=== PATIENT | male | born 1940 | race Caucasian/White ===

== ENCOUNTER 2016-11-07 04:30 | Inpatient (IN) | payer OTHER ==
--- NOTE | ~2016-11-07 | CO ---
Unit #: [id number] #: [id number] Patient: GAIL PAUL [id number] [address] [place], [place] [address] [id number] I MR#: [id number] NAME: GAIL PAUL ROOM: 68902 Age: 76 Sex: M Admission Date: 11/07/2016 : 1940 Attending Physician: Ronel Mcmullen M.D. Primary Care Physician: Renetta Jones A.P.R.N. CONSULTATION REPORT HISTORY Mr. Paul is a 76-year-old white male, known to me from the past, who presents with a several-day history of increased shortness of breath. He said it felt as if there is something in his bronchial tube that he has not been able to cough up. His chest x-ray showed increased interstitial markings bilaterally. He was noted to be in A fib with rapid ventricular response. He denied any chest pain. He has had no fever or chills. He has had no hemoptysis. He is not aware of any increased edema. PAST MEDICAL HISTORY 1. Bladder cancer status post cystectomy with ileal conduit. 2. History of laryngeal cancer with permanent trach stoma. 3. History of rectal cancer. 4. History of lung cancer status post chemoradiation. 5. History of COPD. 6. Gastroesophageal reflux. 7. Hypothyroidism. ALLERGIES No known allergies. SOCIAL HISTORY No alcohol. No tobacco. HOME MEDICATIONS Hydrocodone, APAP, levothyroxine, Prilosec, iron, vitamin C, Lopressor. REVIEW OF SYSTEMS A 10-point system is otherwise negative. PHYSICAL EXAMINATION GENERAL: White male in no distress. VITAL SIGNS: Blood pressure 110/98, pulse 127, respiratory rate 27, temperature 98.1, room air sat 98%. HEENT: Normocephalic, atraumatic. Pupils equal, round and reactive. NECK: Supple. Trach stoma. Dry. LUNGS: Fairly clear. CARDIAC: Irregular rate and rhythm. ABDOMEN: Nontender. Bowel sounds are present. No hepatosplenomegaly. EXTREMITIES: Without clubbing, cyanosis. There is 2+ pedal edema. SKIN: Warm and dry. PSYCHIATRIC: Affect calm. DIAGNOSTIC STUDIES Unit #: [id number] #: [id number] Patient: GAGLE,GAIL LABORATORY STUDIES: Arterial blood gases show pH of 7.52, pCO2 28, pO2 72 on room air. Creatinine is 1.1, potassium 2.9, alkaline phosphatase 187. Lactic acid 1.5. Coags normal. White blood cell count 22, hematocrit 29.1, platelet count normal. Cardiac enzymes initially negative. No BNP has been done. IMPRESSION Increased bilateral infiltrates. May be related to CHF with lower extremity edema; less likely pneumonia but does have elevated white blood cell count. Elevated white count could be secondary to myocardial damage. Doubt venous thromboembolism but certainly is possible given recent extensive surgery. PLAN 1. Will check BNP and procalcitonin level. 2. Empiric antibiotics for possible healthcare-acquired pneumonia. 3. Consider chest CT scan. 4. Cardiology is following. An echo has been ordered. Serial enzymes will be done. 5. Will make recommendations based on results of BNP. Will follow with you. Dictated by... Michael Doherty M.D. BLOSSOM/altaf TD: 11/07/2016 13:18 JOB #: [id number] CONSULTATION REPORT Page 1 of 1 X Michael Doherty MD X CONSULTATION REPORT
--- NOTE | ~2016-11-07 | CR72 ---
[facility] A Service of [facility] RADIOLOGY TEXT RESULTS PATIENT: GAIL PAUL LOCATION: A 307-01 : 40 UNIT #: [id number] AGE: [address]: Ronel Mcmullen MD SEX: M ORDER DR: [id number] [facility] [address] [place], [place] [address] [id number] I MR#: [id number] Acc #: [id number] NAME: GAIL PAUL : 1940 SEX: M STUDY DATE/TIME: 11/07/2016 4:13 UNIT: CEDOF ROOM: 11754 STUDY DESCRIPTION: CR Chest Single View Portable Attending Physician: Ronel Mcmullen M.D. Ordering Physician: Jesus Ro M.D. Primary Care Physician: Renetta Jones A.P.R.N. MEDICAL IMAGING REPORT This report is preliminary unless electronic signature is present EXAM AP portable chest, 11/07/2016 HISTORY 76-year-old male in the ED complaining of 1-day history of shortness of air, weakness. Atrial fibrillation. Prior history of lung cancer. TECHNIQUE AP portable chest x-ray. FINDINGS The exam shows postoperative changes previous partial left pneumonectomy surgery with volume loss and pleural thickening at the left lung apex and pleural thickening surrounding the left mid and lower lung, best demonstrated on prior chest CT 08/25/2012. Background pulmonary emphysema. Mildly increased and indistinct interstitial markings throughout both lungs, greatest at the lung bases. This may represent superimposed mild diffuse interstitial pulmonary edema or pneumonitis, correlate clinically. Heart size is normal. Low lung volumes. IMPRESSION 1. Pulmonary emphysema with postop changes partial left pneumonectomy as noted. 2. Possible mild superimposed diffuse interstitial edema or infiltrate. Dictated by... Lee Padilla M.D. THIS IS AN ELECTRONICALLY VERIFIED REPORT Lee Padilla M.D. at 11/07/2016 10:06 PM ORESTES/jaquelin [facility] A Service of [facility] RADIOLOGY TEXT RESULTS PATIENT: GAIL PAUL LOCATION: C3A 307-01 : 40 UNIT #: [id number] AGE: [address]: Ronel Mcmullen MD SEX: M ORDER DR: TD: 11/07/2016 13:30 JOB #: [id number] MEDICAL IMAGING REPORT Page 1 of 1 COPY
--- NOTE | ~2016-11-07 | US84 ---
[id number] [facility]. [facility] [address] [place] [address] [place], [place] [address] [id number] I MR#: [id number] Acc #: [id number] NAME: GAIL PAUL : 1940 SEX: M STUDY DATE/TIME: 11/07/2016 16:17 UNIT: C3A PCU ROOM: 307 STUDY DESCRIPTION: US LE Veins Complete Gurjit Stdy Attending Physician: Ronel Mcmullen M.D. Ordering Physician: Ed Tien Hammer M.D. Primary Care Physician: Renetta Jones A.P.R.N. MEDICAL IMAGING REPORT This report is preliminary unless electronic signature is present EXAM Lower extremity venous ultrasound, bilateral study, 11/07/2016 HISTORY Question PE. Short of air since yesterday. Atrial fibrillation. Color surgery 2 or 3 weeks ago. TECHNIQUE Venous ultrasound examination of both lower extremities was performed using grayscale, spectral Doppler and color flow Doppler imaging. FINDINGS The examination is negative. There is no evidence of deep venous thrombus from the groin to the lower calf bilaterally. Visualized greater saphenous veins are also patent. IMPRESSION Negative examination. No evidence of lower extremity deep venous thrombosis. Dictated by... Dominick Ann M.D. THIS IS AN ELECTRONICALLY VERIFIED REPORT Dominick Ann M.D. at 11/09/2016 8:06 PM Sharona TD: 11/08/2016 02:16 JOB #: [id number] MEDICAL IMAGING REPORT Page 1 of 1 COPY
--- NOTE | ~2016-11-07 | CR63 ---
[facility] A Service of [facility] RADIOLOGY TEXT RESULTS PATIENT: GAIL PAUL LOCATION: C3A 307- : 40 UNIT #: [id number] AGE: [address]: Ronel Mcmullen MD SEX: M ORDER DR: [id number] [facility] [address] [place], [place] [address] [id number] I MR#: [id number] Acc #: [id number] NAME: GAIL PAUL : 1940 SEX: M STUDY DATE/TIME: 11/09/2016 09:07 UNIT: C3A PCU ROOM: [facility] STUDY DESCRIPTION: CR Chest 2 View Attending Physician: Ronel Mcmullen M.D. Ordering Physician: Ronel Mcmullen M.D. Primary Care Physician: Renetta Jones A.P.R.N. MEDICAL IMAGING REPORT This report is preliminary unless electronic signature is present EXAM Chest 2 views 11/09/2016 0907 hours HISTORY 76-year-old with 3-day history of shortness of air, atrial fibrillation. History of lung, bladder and throat cancer. COMPARISON Chest film 11/07/2016. FINDINGS Upright AP and lateral views of the chest demonstrate normal heart size with tortuous aorta. There is stable left apical pleural and parenchymal scar. Interstitial changes in both lungs are improved. Lateral view demonstrates bilateral effusions likely stable. IMPRESSION Stable left apical pleural and parenchymal scar. Bilateral parenchymal changes have improved since 11/07/2016 without complete resolution. Better seen on the lateral view are bilateral pleural effusions felt unchanged. Dictated by... Belen Weber M.D. THIS IS AN ELECTRONICALLY VERIFIED REPORT Belen Weber M.D. at 11/09/2016 1:55 PM ASHKAN/jaswant TD: 11/09/2016 10:19 JOB #: [id number] [facility] A Service of [facility] RADIOLOGY TEXT RESULTS PATIENT: GAIL PAUL LOCATION: C3A 307-01 : 40 UNIT #: [id number] AGE: [address]: Ronel Mcmullen MD SEX: M ORDER DR: MEDICAL IMAGING REPORT Page 1 of 1 COPY
--- NOTE | ~2016-11-07 | EKG ---
PATIENT: NAVI PAULER UNIT #: [id number] Ventricular Rate: 84 BPM Atrial Rate: 84 BPM P-R Interval: 150 ms QRS Duration: 84 ms Q-T Interval: 382 ms QTC Calculation(Bezet): 451 ms P [place]: -6 degrees Calculated R [place]: 7 degrees Calculated T [place]: 86 degrees Diagnosis Line: Normal sinus rhythm Diagnosis Line: Normal ECG Diagnosis Line: When compared with ECG of 07-NOV-2016 03:36, Diagnosis Line: (unconfirmed) Diagnosis Line: Sinus rhythm has replaced Atrial fibrillation Diagnosis Line: Vent. rate has decreased BY 48 BPM Diagnosis Line: ST no longer depressed in Anterior leads Diagnosis Line: Confirmed by MARCO ANTONIO LIZAMA, KARLOS ([id number]) on 11/09/2016 Diagnosis Line: 7:42:57 AM INTERPRETING MD: MARCO ANTONIO LIZAMA
--- NOTE | ~2016-11-07 | CR7 ---
[facility] A Service of [facility] RADIOLOGY TEXT RESULTS PATIENT: GAIL PAUL LOCATION: C3A 307- : 40 UNIT #: [id number] AGE: [address]: Ronel Mcmullen MD SEX: M ORDER DR: [id number] [facility] [address] [place], [place] [address] [id number] I MR#: [id number] Acc #: [id number] NAME: GAIL PAUL : 1940 SEX: M STUDY DATE/TIME: 11/13/2016 9:01 UNIT: C3A PCU ROOM: [facility] STUDY DESCRIPTION: CR Abdomen Single AP View Attending Physician: Ronel Mcmullen M.D. Ordering Physician: Ivan Silva M.D. Primary Care Physician: Renetta Jones A.P.R.N. MEDICAL IMAGING REPORT This report is preliminary unless electronic signature is present EXAM AP of the abdomen INDICATIONS 76-year-old male with abdominal pain and shortness of breath since November 07. No comparisons. FINDINGS Bowel gas pattern is nonobstructed. No radiopaque stones. The visualized osseous structures are unremarkable. IMPRESSION Nonobstructed bowel gas pattern. Dictated by... Abimael Chavarria M.D. THIS IS AN ELECTRONICALLY VERIFIED REPORT Abimael Chavarria M.D. at 11/14/2016 9:07 AM Derek TD: 11/13/2016 12:26 JOB #: [id number] MEDICAL IMAGING REPORT Page 1 of 1 COPY
--- NOTE | ~2016-11-07 | HP ---
Unit #: [id number] #: [id number] Patient: GAIL PAUL [id number] [facility] [address]. [place], [place] [address] [id number] I MR#: [id number] NAME: GAIL PAUL ROOM: 307 Age: 76 Sex: M Admission Date: 11/07/2016 : 1940 Attending Physician: Ronel Mcmullen M.D. Primary Care Physician: Renetta Jones A.P.R.N. HISTORY AND PHYSICAL REASON FOR ADMISSION Acute respiratory failure, atrial fibrillation with rapid ventricular response. HISTORY OF PRESENT ILLNESS The patient is a 76-year-old male with a prior history of laryngeal cancer, status post laryngectomy, chemotherapy radiation; prior history of rectal cancer, status post laparoscopic resection with primary anastomosis with resultant ileostomy as well as recent diagnosis of bladder cancer. I believe with resection in recent hospital admission in [facility] earlier in 09/2016. He states that over the past 3 to 4 days had increased difficulty with breathing, marked fatigue, shortness of breath, and stated that he had difficulty with routine activities. His who is present at bedside, states that he is otherwise quite active despite having a tracheostomy present. He is active both indoors and outdoors with his routine ADLs, but recently has had increased fatigue and difficulties with breathing. The patient also states that he is followed by one of the cancer physicians at [facility]; however, we do not have any previous records here at [facility] for review. The patient himself is perhaps not the best historian and some of this H and P is elicited from previous records performed at [facility]. While he was evaluated in the emergency room, he was noted to be in atrial fibrillation with rapid ventricle response. It is noted that he did have postoperative atrial fibrillation from his recent [facility] surgery secondary to radical cystectomy and ileal conduit placement. PAST MEDICAL HISTORY 1. Prior history of bladder cancer with recent surgery; rectal cancer; colon cancer; metastatic lung disease, I believe per records, emphysema of lung, lifelong smoker; GERD; laryngeal cancer, status post laryngectomy with resultant tracheostomy placement. 2. Hypothyroidism. 3. Atrial fibrillation postoperatively in recent hospital stay. PAST SURGICAL HISTORY 1. Cystoscopy. 2. Colon resection. 3. Left inguinal hernia surgery. Unit #: [id number] #: [id number] Patient: GAGSEVERO,GAIL ALLERGIES No known medication allergies. SOCIAL HISTORY No alcohol use. No substance use. No tobacco use. CURRENT HOME MEDICATIONS [place], Synthroid, omeprazole, iron, vitamin C, Lopressor. REVIEW OF SYSTEMS Please see HPI. Twelve point otherwise negative except for those positive noted in the HPI. PHYSICAL EXAMINATION VITAL SIGNS: Temperature 98.1, respiratory rate 27, blood pressure 110/98, heart rate 127, atrial fibrillation with RVR noted. Cardizem drip initiated in the ER. GENERAL APPEARANCE: The patient is a 76-year-old male, who appears well. He is alert and responds appropriately. HEAD/NECK: Atraumatic and normocephalic. Neck exam appears supple. On stoma exam, it appears to be clean and dry. I do not see any drainage or any erythema around tracheostomy site. RESPIRATORY: Diminished bilaterally. CVS: S1, S2 are audible with irregularly irregular rhythm changes, tachycardic. GI/ABDOMEN: Nontender and nondistended. Ileostomy present. EXTREMITIES: Lower extremities exam, no evidence of lower extremities edema noted. NEUROLOGIC: The patient is A and O x3. Assisted in speaking by use of amplified vocal device. DIAGNOSTIC STUDIES IMAGING STUDIES: Chest x-ray shows interstitial lung markings, pulmonary edema versus pneumonia. LABORATORY RESULTS: Show white count 22,000, hemoglobin 9.4. Potassium 2.9, creatinine 1.1. ABG show pH of 7.52, pO2 of 72, pCO2 of 28. Lactic acid level 1.9. INITIAL ADMISSION DIAGNOSES 1. Dyspnea likely multifactorial secondary to acute respiratory failure as well as atrial fibrillation with rapid ventricular response. 2. Atrial fibrillation with rapid ventricular response change. 3. Bilateral edema versus pneumonia, possible healthcare acquired pneumonia given recent hospital admission. 4. Urinary tract infection. 5. Hypokalemia on admission. 6. Leukocytosis. 7. Anemia. 8. Recent hospital admission secondary to bladder carcinoma, status post resection. 9. Prior history of rectal cancer. 10. Prior history of laryngeal cancer, status post tracheostomy. 11. Questionable metastatic disease to the lungs. I do not have any previous records to verify. PLAN Unit #: [id number] #: [id number] Patient: GAIL PAUL Admission to ICU. Cardiac consult. Pulmonary consult. Oncology consult. Routine labs, electrolytes, anticoagulation, echo. HCAP protocol. CT chest if able. Further hospital course to follow. Dictated by Jenn Cross/daniel TD: 11/08/2016 03:11 JOB #: [id number] HISTORY AND PHYSICAL Page 1 of 1 X Ronel Mcmullen MD X HISTORY AND PHYSICAL
--- NOTE | ~2016-11-07 | CO ---
Unit #: [id number] #: [id number] Patient: GAIL PAUL [id number] [address] [place], [place] [address] [id number] I MR#: [id number] NAME: GAIL PAUL ROOM: 307 Age: 76 Sex: M Admission Date: 11/07/2016 : 1940 Attending Physician: Ronel Mcmullen M.D. Primary Care Physician: Renetta Jones A.P.R.N. Consultation Date: 11/13/2016 CONSULTATION REPORT CHIEF COMPLAINT Gross hematuria. HISTORY OF PRESENT ILLNESS Mr. Paul is a 76-year-old gentleman who underwent cystectomy, laparoscopic technique maybe 3 weeks ago at [facility] with Dr. Isaacs. The patient was initially diagnosed with bladder cancer muscle invasive in 07/2016 by my partner, Dr. Ibanez. The patient is here with respiratory failure, pneumonia, COPD. We were consulted for his hematuria. PAST MEDICAL HISTORY TURBT, bladder cancer radical cystectomy, laparoscopic technique, colon resection, colon surgery, laryngectomy for throat cancer, COPD. SOCIAL HISTORY Positive smoking. FAMILY HISTORY Noncontributory. HOME MEDICATIONS He was on Prilosec, Lortab, Lopressor, Synthroid. He did receive some Eliquis here in the hospital, later it was stopped. PHYSICAL EXAMINATION VITAL SIGNS: Stable. He is afebrile. ABDOMEN: Soft. No rebound. No guarding. Stoma is pink. Urine in the bag also was pink tinged, but no clots. There are no stents present in the conduit. DIAGNOSTIC STUDIES LABORATORY RESULTS: Creatinine 1.2. White count 12.1. Urine culture obtained on the shows greater than 100,000 mixed, probably colonization. ASSESSMENT Hematuria unexpected with recent cystectomy and with likely some anticoagulation received recently, however, we will check a renal ultrasound and KUB. We will follow along with you. Thank you for the referral. Unit #: [id number] #: [id number] Patient: GAIL PAUL Dictated by... Jenn Stahl/daniel TD: 11/14/2016 01:22 JOB #: [id number] CONSULTATION REPORT Page 1 of 1 X Ivan Silva MD CONSULTATION REPORT
--- NOTE | ~2016-11-07 | EKG ---
PATIENT: GAIL PAUL UNIT #: [id number] Ventricular Rate: 132 BPM Atrial Rate: 138 BPM QRS Duration: 84 ms Q-T Interval: 294 ms QTC Calculation(Bezet): 435 ms Calculated R [place]: -4 degrees Calculated T [place]: 133 degrees Diagnosis Line: Atrial fibrillation with rapid ventricular Diagnosis Line: response with premature ventricular or aberrantly Diagnosis Line: conducted complexes Diagnosis Line: Nonspecific ST and T wave abnormality Diagnosis Line: Abnormal ECG Diagnosis Line: No previous ECGs available Diagnosis Line: Confirmed by LEEANNE MONTANA MD ([id number]) on 11/08/2016 Diagnosis Line: 9:17:57 AM INTERPRETING MD: RUBÉN LIZAMA
--- NOTE | ~2016-11-07 | CO ---
Unit #: [id number] #: [id number] Patient: GAIL PAUL [id number] [facility]. [address] [place], [place] [address] [id number] I MR#: [id number] NAME: GAIL PAUL ROOM: [facility] Age: Sex: M Admission Date: 11/07/2016 : 1940 Attending Physician: Ronel Mcmullen M.D. Primary Care Physician: Renetta Jones A.P.R.N. Consultation Date: 11/07/2016 CONSULTATION REPORT REASON FOR CONSULT Atrial fibrillation with RVR. HISTORY OF PRESENT ILLNESS This is a pleasant 76-year-old male with a past medical history of colon cancer, status post anterior wall resection many years ago, laryngeal carcinoma, status post laryngectomy in the past most recently; however, the patient underwent bladder removal secondary to muscle invasive bladder cancer. This was performed approximately three weeks or so ago at [facility] per Dr. Isaacs. According to the records from [facility], on October 17 he underwent robotic radical cystectomy and ileal conduit. The procedure went well. However, postoperatively he had some complications with developing of new-onset atrial fibrillation. Cardiology evaluated him there and started him on rate control with metoprolol, and he was also sent home on Lovenox subcutaneous daily. We were asked to see secondary to atrial fibrillation with RVR. According to the patient and his , he had been having some issues with shortness of breath over the last two days. He states that last evening he had gone to sleep when he awoke around 11:30 or 12 p.m. secondary to acute onset respiratory distress. He denied any complaints of chest pain, palpitations, or syncope at that time. He states to me he felt like something was stuck in his throat. He reported the breathing really scared him; therefore, he presented to the emergency room for further workup. On arrival to the ER, the patient was noted to be in atrial fibrillation with RVR, rates in the 130s. Initial chest x-ray showed increased interstitial markings bilaterally. He denied any complaints of fever or chills and denied association with any sick contacts recently. In the ER, he was also noted to have initially a low blood pressure and was given a small amount of fluid bolus. He was also bolused with Cardizem and started on a Cardizem drip. Initial potassium was also noted to be low at 2.9 and has since been replaced. Initial cardiac enzymes have been negative x2. EKG shows atrial fibrillation with RVR, rate of 132 beats per minute, nonspecific ST and T wave abnormalities noted, and QTc interval of 435 msec. At present, he is resting in bed. He still states his breathing is labored but denies any complaints of chest pain. Initial lactic acid was 1.9. It does appear that patient has a UTI. Culture is currently pending. He has 3+ leukocyte esterase and 4+ blood, and also noted to have a white count of 22,000 with left shift. He is currently on 60% Unit #: [id number] #: [id number] Patient: GAGLE,GAIL oxygen via trach mask, and Pulmonary has also been consulted to see. PAST MEDICAL HISTORY 1. History of colon cancer, status post low anterior resection in the past over 10 years ago per the patient's . 2. History of laryngeal cancer with permanent trach stoma. 3. Recent bladder removal secondary to bladder cancer, post cystectomy with ileal conduit in October [address] Isaacs at [facility]. 4. History of lung cancer, status post chemoradiation. 5. Chronic obstructive pulmonary disease. 6. Gastroesophageal reflux disease. 7. Hypothyroidism. 8. New-onset atrial fibrillation post surgical intervention at [facility] approximately three weeks ago. ALLERGIES No known drug allergies. SOCIAL HISTORY Denies alcohol, illicit drugs, or tobacco. HOME MEDICATIONS 1. Hydrocodone 5/325 at 1 p.o. q.6 hours p.r.n. 2. Levothyroxine 150 mcg p.o. daily. 3. Omeprazole 20 mg p.o. daily. 4. Iron 65 mg p.o. b.i.d. 5. Vitamin C 500 mg p.o. daily. 6. Lopressor 12.5 mg p.o. t.i.d. 7. Lovenox 30 mg subcutaneous daily. REVIEW OF SYSTEMS Positive for shortness of breath, fatigue, hypothyroidism, and irregular heartbeat, otherwise negative except for what was stated in the History of Present Illness. PHYSICAL EXAMINATION VITAL SIGNS: Temperature 97.7, respiratory rate 18-22, pulse currently 87, on initial presentation 130s-150, irregular, blood pressure 87/61 to 106/68, and currently on 60% trach mask oxygen saturation is 96%. BMI 24. GENERAL: This is a pleasant 76-year-old elderly male who appears to be mildly labored in his breathing currently on 60% trach mask. No acute cardiac distress. HEENT: Pupils are equal and round. Mucous membranes are dry. Trachea is midline. NECK: No JVD, no carotid bruits. CARDIOVASCULAR: S1 and S2. No murmur, gallop, or rub. LUNGS: Clear to auscultation anterior. Diminished breath sounds in the bases. No rales, rhonchi, or wheezes. ABDOMEN: Soft, nontender, and nondistended. EXTREMITIES: Pulses are palpable. No clubbing, cyanosis, or edema. NEUROLOGIC: Awake, alert, and oriented. He follows commands and moves all extremities. DIAGNOSTIC STUDIES Dictated by... Kelby OsbornPFelixRFelixN. for Unit #: [id number] #: [id number] Patient: GAIL PAUL M.D. LMW/am TD: 11/07/2016 18:27 JOB #: [id number] CONSULTATION REPORT Page 1 of 1 X Tonie Mccoy APRN X CONSULTATION REPORT
--- NOTE | ~2016-11-07 | CO ---
Unit #: [id number] #: [id number] Patient: GAIL PAUL [id number] [facility]. [address] [place], [place] [address] [id number] I MR#: [id number] NAME: GAIL PAUL ROOM: 307 Age: 76 Sex: M Admission Date: 11/07/2016 : 1940 Attending Physician: Ronel Mcmullen M.D. Primary Care Physician: Renetta Jones A.P.R.N. Consultation Date: 11/07/2016 CONSULTATION REPORT REASON FOR CONSULT Atrial fibrillation with RVR. HISTORY OF PRESENT ILLNESS This is a pleasant 76-year-old male with a past medical history of colon cancer, status post anterior wall resection many years ago, laryngeal carcinoma, status post laryngectomy in the past most recently; however, the patient underwent bladder removal secondary to muscle invasive bladder cancer. This was performed approximately three weeks or so ago at [facility] per Dr. Isaacs. According to the records from [facility], on October 17 he underwent robotic radical cystectomy and ileal conduit. The procedure went well. However, postoperatively he had some complications with developing of new-onset atrial fibrillation. Cardiology evaluated him there and started him on rate control with metoprolol, and he was also sent home on Lovenox subcutaneous daily. We were asked to see secondary to atrial fibrillation with RVR. According to the patient and his , he had been having some issues with shortness of breath over the last two days. He states that last evening he had gone to sleep when he awoke around 11:30 or 12 p.m. secondary to acute onset respiratory distress. He denied any complaints of chest pain, palpitations, or syncope at that time. He states to me he felt like something was stuck in his throat. He reported the breathing really scared him; therefore, he presented to the emergency room for further workup. On arrival to the ER, the patient was noted to be in atrial fibrillation with RVR, rates in the 130s. Initial chest x-ray showed increased interstitial markings bilaterally. He denied any complaints of fever or chills and denied association with any sick contacts recently. In the ER, he was also noted to have initially a low blood pressure and was given a small amount of fluid bolus. He was also bolused with Cardizem and started on a Cardizem drip. Initial potassium was also noted to be low at 2.9 and has since been replaced. Initial cardiac enzymes have been negative x2. EKG shows atrial fibrillation with RVR, rate of 132 beats per minute, nonspecific ST and T wave abnormalities noted, and QTc interval of 435 msec. At present, he is resting in bed. He still states his breathing is labored but denies any complaints of chest pain. Initial lactic acid was 1.9. It does appear that patient has a UTI. Culture is currently pending. He has 3+ leukocyte esterase and 4+ blood, and also noted to have a white count of 22,000 with left shift. He is currently on 60% Unit #: [id number] #: [id number] Patient: GAGLE,GAIL oxygen via trach mask, and Pulmonary has also been consulted to see. PAST MEDICAL HISTORY 1. History of colon cancer, status post low anterior resection in the past over 10 years ago per the patient's . 2. History of laryngeal cancer with permanent trach stoma. 3. Recent bladder removal secondary to bladder cancer, post cystectomy with ileal conduit in [place] [address] Isaacs at [facility]. 4. History of lung cancer, status post chemoradiation. 5. Chronic obstructive pulmonary disease. 6. Gastroesophageal reflux disease. 7. Hypothyroidism. 8. New-onset atrial fibrillation post surgical intervention at [facility] approximately three weeks ago. ALLERGIES No known drug allergies. SOCIAL HISTORY Denies alcohol, illicit drugs, or tobacco. HOME MEDICATIONS 1. Hydrocodone 5/325 at 1 p.o. q.6 hours p.r.n. 2. Levothyroxine 150 mcg p.o. daily. 3. Omeprazole 20 mg p.o. daily. 4. Iron 65 mg p.o. b.i.d. 5. Vitamin C 500 mg p.o. daily. 6. Lopressor 12.5 mg p.o. t.i.d. 7. Lovenox 30 mg subcutaneous daily. REVIEW OF SYSTEMS Positive for shortness of breath, fatigue, hypothyroidism, and irregular heartbeat, otherwise negative except for what was stated in the History of Present Illness. PHYSICAL EXAMINATION VITAL SIGNS: Temperature 97.7, respiratory rate 18-22, pulse currently 87, on initial presentation 130s-150, irregular, blood pressure 87/61 to 106/68, and currently on 60% trach mask oxygen saturation is 96%. BMI 24. GENERAL: This is a pleasant 76-year-old elderly male who appears to be mildly labored in his breathing currently on 60% trach mask. No acute cardiac distress. HEENT: Pupils are equal and round. Mucous membranes are dry. Trachea is midline. NECK: No JVD, no carotid bruits. CARDIOVASCULAR: S1 and S2. No murmur, gallop, or rub. LUNGS: Clear to auscultation anterior. Diminished breath sounds in the bases. No rales, rhonchi, or wheezes. ABDOMEN: Soft, nontender, and nondistended. EXTREMITIES: Pulses are palpable. No clubbing, cyanosis, or edema. NEUROLOGIC: Awake, alert, and oriented. He moves all extremities equally. He follows commands with ease. DIAGNOSTIC STUDIES LABORATORY: Hemoglobin 9.4, hematocrit 29.1, WBC 22, and platelet count 180,000. ABG with pH of 7.525, PCO2 of 28.4, and PAO2 of 72.7. Sodium 135, potassium 2.9, chloride 102, CO2 of 24, BUN 29, creatinine 1.1, Unit #: [id number] #: [id number] Patient: GAGLE,GAIL glucose 124, magnesium 1.7, and alkaline phosphatase 187. Troponins initially have been negative x2. Urinalysis shows 3+ leukocyte esterase, 4+ blood, 5-10 RBCs, numerous WBCs, and 2+ bacteria. He currently has a urine culture that is pending. Also, blood cultures are pending. IMAGING: Chest x-ray shows pulmonary emphysema with postop changes, partial left pneumonectomy, and possible mild superimposed diffuse interstitial edema or infiltrate. CARDIOLOGY: EKG shows atrial fibrillation with RVR at 132 beats per minute, nonspecific ST and T wave abnormality, QTc interval of 435 msec, and no acute ischemic change. IMPRESSION 1. Admitted for acute shortness of breath. 2. Urinary tract infection, culture is currently pending. 3. Atrial fibrillation with rapid ventricular response. 4. Hypokalemia. 5. Acute heart failure. 6. History of colon cancer. 7. Laryngeal carcinoma, status post laryngectomy in the past. 8. Recent cystectomy and ileal conduit at [facility] on October 17, 2016. PLAN The patient has been admitted for acute onset shortness of breath. He is currently receiving IV fluids. These will be discontinued, and the patient will be given Lasix 20 IV b.i.d. At present, he is on a Cardizem drip, and his rates are more controlled. Will give orders to titrate Cardizem drip to keep systolic blood pressure above 90. The patient will have a 2D echocardiogram to assess LV systolic function, as well as for any structural abnormalities of his valve. His potassium has already been supplemented. However, he will be started on potassium chloride 20 mEq p.o. b.i.d. The patient will also be continued on his Lopressor as long as his blood pressure can tolerate it for continued rate control with parameters to hold for systolic less than 90 and a heart rate below 55. He currently was receiving Lovenox at home just subcutaneous daily. Lovenox will be increased to 1 mg/kg subcutaneous b.i.d., first dose to start now. Will monitor him for any bleeding. Will repeat CBC and BMP at 2 p.m. today with instructions to call if these values are abnormal. We will continue to follow his electrolytes and check a TSH and a lipid profile, as well as a troponin and EKG in the a.m. If the patient can tolerate the Lovenox without any significant bleeding, he will need consideration of oral anticoagulation prior to discharge. Code status has been reviewed with the patient and the family, and it has been determined the patient is agreeable to Do Not Resuscitate status, and this will continue throughout his hospitalization. Dictated by... Tonie Mccoy A.P.R.N. for Mame Lopez M.D. LMW/am TD: 11/07/2016 18:27 Unit #: [id number] #: [id number] Patient: GAIL PAUL Dictated by... Tonie Mccoy A.P.R.N. for Mame Lopez M.D. LMW/am TD: 11/07/2016 19:29 JOB #: [id number] CONSULTATION REPORT Page 1 of 1 X Tonie Mccoy APRN CONSULTATION REPORT
--- NOTE | ~2016-11-07 | CR72 ---
[facility] A Service of [facility] & [facility] RADIOLOGY TEXT RESULTS PATIENT: GAIL PAUL LOCATION: C3A 307- : 40 UNIT #: [id number] AGE: [address]: Ronel Mcmullen MD SEX: M ORDER DR: [id number] [facility] [address]. [place], [place] [address] [id number] I MR#: [id number] Acc #: [id number] NAME: GAIL PAUL : 1940 SEX: M STUDY DATE/TIME: 11/12/2016 14:03 UNIT: A PCU ROOM: [facility] STUDY DESCRIPTION: CR Chest Single View Portable Attending Physician: Ronel Mcmullen M.D. Ordering Physician: Ronel Mcmullen M.D. Primary Care Physician: Renetta Jones A.P.R.N. MEDICAL IMAGING REPORT This report is preliminary unless electronic signature is present EXAM Portable chest, 11/12/16 HISTORY A 76-year-old male with history of following up pneumonia. COMPARISON STUDIES 11/09/16 FINDINGS Improved inspiratory volume with decreased atelectasis or consolidation in the lung bases. Diffuse interstitial opacities not significant changed with stable volume loss in the left lung. Heart size is stable. IMPRESSION Improved inspiratory volume and decreased bibasilar atelectasis or consolidation. Dictated by... Abimael Chavarria M.D. THIS IS AN ELECTRONICALLY VERIFIED REPORT Abimale Chavarria M.D. at 11/13/2016 10:00 AM ANDREY/eros TD: 11/12/2016 18:49 JOB #: [id number] MEDICAL IMAGING REPORT Page 1 of 1 COPY
--- NOTE | ~2016-11-07 | CO ---
Unit #: [id number] #: [id number] Patient: GAIL PAUL [id number] [address] [place], [place] [address] [id number] I MR#: [id number] NAME: GAIL PAUL ROOM: [facility] Age: 76 Sex: M Admission Date: 11/07/2016 : 1940 Attending Physician: Ronel Mcmullen M.D. Primary Care Physician: Renetta Jones A.P.R.N. Consultation Date: 11/08/2016 CONSULTATION REPORT REASON FOR CONSULTATION Bladder cancer. HISTORY OF PRESENT ILLNESS Mr. Gail Lopes is a 76-year-old, well known to me, but not seen recently, with a remote history of laryngeal cancer for which he had a tracheostomy, stage III non-small cell lung cancer, treated with chemoradiation therapy and a history of rectal cancer, who most recently has had a stage II bladder cancer and underwent radical cystectomy with ileal conduit. He was admitted to the hospital on 11/07/2016 with atrial fibrillation with rapid ventricular response and respiratory failure. Following radical cystectomy with ileal conduit approximately 3 weeks ago and post procedure, he did have atrial fibrillation. PAST MEDICAL HISTORY Remote history of laryngeal cancer, which he had a tracheostomy and after laryngectomy, he is with an artificial voice. History of rectal cancer with low anterior resection in 1999. Stage III non-small cell lung cancer, treated with chemoradiation therapy and has bladder cancer as mentioned most recently. Other medical problems include hypothyroidism and recent atrial fibrillation. PAST SURGICAL HISTORY Includes laryngectomy, cystoscopy, colon resection. ALLERGIES He has no known medication allergies. FAMILY HISTORY Negative for cancers in the remote or immediate family. SOCIAL HISTORY Quit smoking at time of his original laryngeal cancer. Does not drink any alcohol. He is , lives with his . REVIEW OF SYSTEMS 14-point review of systems taken. CONSTITUTIONAL: Some decreased appetite and weight changes accompanying his recent surgeries. EYES: Negative. EARS, NOSE, MOUTH AND THROAT: Negative. CARDIOVASCULAR: Atrial fibrillation. RESPIRATORY: Chronic shortness of breathing without any recent change. GASTROINTESTINAL: Negative. Unit #: [id number] #: [id number] Patient: GAIL PAUL GENITOURINARY: Radical cystectomy with ileal conduit. MUSCULOSKELETAL: Negative. ALLERGIC/LYMPHATIC: Negative. SKIN: Negative. EXAMINATION GENERAL: He is a pleasant, elderly man, awake, alert, and oriented x3. VITAL SIGNS: Temperature 97.7, pulse is 70, respiratory rate 22, blood pressure 92/53, O2 saturations 100% on oxygen. HEENT: Shows pupils are equal and reactive well to light. Mucous membranes are moist. NECK: With tracheostomy, which is well healed. No palpable lymphadenopathy. CARDIOVASCULAR: First and second heart sounds are heard and are regular. LUNGS: Chest expansion is symmetric bilaterally. Normal breath sounds. ABDOMEN: Soft and nontender. Ileal conduit is noted as well as the ports from his recent robotic surgery. No organomegaly. EXTREMITIES: Warm and good pulses. No edema, cyanosis or clubbing. NEUROLOGIC: He is awake, alert, and oriented x3 without any focal findings. DIAGNOSTIC STUDIES LABORATORY RESULTS: CBC with a white count 25,200, it was 9.3, MCV is 82.2, platelet count is 175,000. Doppler studies are negative. TSH is 11.03. Basic metabolic panel shows a BUN of 26, creatinine of 1.2. IMAGING STUDIES: Chest x-ray, single view, shows emphysema with no acute findings. ASSESSMENT AND PLAN Mr. Gail Lopes is a 76-year-old, well known to me, but not seen recently with a remote history of laryngeal cancer, rectal cancer, and stage III non-small cell lung cancer. He was last seen in followup 5 years ago and subsequent to that has developed a bladder cancer T2, N0, M0 based upon records from the [facility]. He has undergone a radical cystectomy with ileal conduit and postop course has been complicated by atrial fibrillation for which he is admitted. Discussed situation with the patient. At this point, no oncologic followup was necessary. Dictated by... Jenn Peraza/daniel TD: 11/09/2016 03:25 JOB #: [id number] Unit #: [id number] #: [id number] Patient: GAIL PAUL CONSULTATION REPORT Page 1 of 1 X Giuliano Peraza MD X CONSULTATION REPORT
--- NOTE | ~2016-11-07 | DS ---
Unit #: [id number] #: [id number] Patient: GAIL PAUL [id number] [facility] [address] [facility]. [place], [place] [address] [id number] I MR#: [id number] NAME: GAIL PAUL ROOM: 307 Age: 76 Sex: M Admission Date: 11/07/2016 : 1940 Discharge Date: 11/14/2016 Attending Physician: Ronel Mcmullen M.D. Primary Care Physician: Renetta Jones A.P.R.N. DISCHARGE SUMMARY REASON FOR ADMISSION Acute respiratory failure and atrial fibrillation with rapid ventricular response. HISTORY OF PRESENT ILLNESS/HOSPITAL COURSE The patient is a very pleasant 76-year-old male with a prior history of laryngeal cancer, status post laryngectomy with resultant trach placement, chemotherapy and radiation; prior history of rectal carcinoma, status post laparoscopic resection as well as recent diagnosis of bladder cancer. He undergone bladder cancer surgery several weeks ago at [facility]. At that point in time, he was discharged home. He was noted to have atrial fibrillation postoperatively. While he was at home, he developed acute onset of shortness of breath, difficulty with breathing, and subsequently he presented to the hospital for further evaluation. Initial diagnosis was made after his EKG showed atrial fibrillation with RVR and chest x-ray did show findings which may be consistent with mild edema, pneumonitis, or possible infiltrate. He was subsequently admitted and placed on healthcare acquired pneumonia protocol and consultation was placed to Pulmonary Services. Dr. Doherty and carly saw and evaluated the patient. Gradually, his antibiotics were deescalated. He was placed on Solu-Medrol and this was deescalated and later discontinued altogether. His blood cultures did not yield any acute bacterial growth. At this point in time, he appears stable from a pulmonary standpoint. Repeat chest x-rays have not shown acute infiltrate; however, he does require oxygen via trach mask. We are assessing him currently at the present time and he may ultimately require oxygen prior to discharge. He is currently 80% on room air. In regard to his prior history of atrial fibrillation as well as this new onset with atrial fibrillation and rapid ventricular response, consultation was placed to [facility] [place] [facility] Cardiology. Dr. Lopez and associates saw and evaluated the patient and underwent 2D echocardiogram, which did show ejection fraction of 55% to 60%. There was moderately dilated right ventricle which was noted as well as mild to moderately enlarged right atrium, mild to moderate tricuspid regurgitation Unit #: [id number] #: [id number] Patient: GAGLEGAIL was noted. Anticoagulation initially was started with Eliquis; however, the patient developed acute hematuria and therefore, this was discontinued in consideration of his overall state of health and associated comorbid conditions. Long-term anticoagulation will not be continued at time of discharge. It should be noted that his initial urinalysis was positive; however, upon urine culture did not show any acute bacterial growth. It should also be noted that his initial white count was elevated greater than 25,000, but at the time of discharge is currently 10,200. At this point in time, he seems stable for discharge home. Physical and Occupational Therapy Services have evaluated and have recommended rehab. The patient is willing; however, the patient states that he does not wish to go to rehab. He only wishes for home at time of discharge. Therefore, we will set up home health as well. Overall, his condition is guarded. Long-term prognosis is guarded at best in consideration of his associated comorbid conditions. FINAL DISCHARGE DIAGNOSES 1. Acute hypoxic respiratory failure. 2. Chronic respiratory failure. 3. Prior history of laryngeal carcinoma, status post tracheostomy placement. 4. Recent bladder carcinoma with surgery at [facility]. 5. Non-small cell lung carcinoma history. 6. Rectal carcinoma history. 7. Chronic obstructive pulmonary disease. 8. Anemia, baseline hemoglobin approximately 8.5 to 9. 9. Hypothyroidism. 10. Atrial fibrillation, postoperatively secondary to recent surgery as well as with recent rapid ventricular response, currently on no anticoagulation secondary to high risk of bleeding and/or hematuria. 11. Failure to thrive. 12. Protein malnutrition likely [id number]. FINAL DISCHARGE MEDICATIONS Amiodarone 200 mg p.o. daily, DuoNeb aerosol solution q.6 scheduled, Lopressor 12.5 mg p.o. b.i.d., Lasix 20 mg p.o. daily, iron 65 mg p.o. b.i.d., [place] 5/325 one tablet p.o. q.6 p.r.n., omeprazole 20 mg p.o. daily, Synthroid 175 mcg p.o. daily. DISCHARGE CONDITION Stable. DISCHARGE DISPOSITION Home with home health. Dictated by... Jenn Cross/daniel TD: 11/14/2016 23:40 Unit #: [id number] #: [id number] Patient: GAIL PAUL JOB #: [id number] DISCHARGE SUMMARY Page 1 of 1 X Ronel Mcmullen MD X DISCHARGE SUMMARY
--- NOTE | ~2016-11-07 | US77 ---
[facility] A Service of [facility] RADIOLOGY TEXT RESULTS PATIENT: GAIL PAUL LOCATION: C3A PC - : 40 UNIT #: [id number] AGE: [address]: Ronel Mcmullen MD SEX: M ORDER DR: [id number] [facility] [address] [place], [place] [address] [id number] I MR#: [id number] Acc #: [id number] NAME: GAIL PAUL : 1940 SEX: M STUDY DATE/TIME: 11/13/2016 11:59 UNIT: C3A PCU ROOM: 307 STUDY DESCRIPTION: US Kidney Bilateral Complete Attending Physician: Ronel Mcmullen M.D. Ordering Physician: Ivan Silva M.D. Primary Care Physician: Renetta Jones A.P.R.N. MEDICAL IMAGING REPORT This report is preliminary unless electronic signature is present EXAM Bilateral renal sonogram HISTORY History of rectal bladder cancer, now presents with hematuria. Patient has had a radical cystectomy with an ileal conduit. Normal BUN and Creatinine. FINDINGS Real-time examination demonstrates the right kidney to be of normal size measuring 10.4 cm in length. Mild thinning of the renal cortex. Prominence of the central echo complex suggest mild hydronephrosis. The left kidney also appears normal in size measuring 10.7 cm in length. Mild prominence of the left renal collecting system also suggests mild hydronephrosis. Echogenic structures seen in the lower pole of the left kidney may represent a small nonobstructing stone. There is a 1 cm cyst off the lower pole of the left kidney. CT performed in June 2016 demonstrated an exophytic lesion off the mid pole of the left kidney with imaging features most compatible with a cyst. This is not clearly identified on today's ultrasound. IMPRESSION 1. Mild bilateral hydronephrosis which may not be unexpected in a patient who has undergone a cystectomy with an ileal conduit. 2. Echogenic material lower pole left kidney may represent a small nonobstructing stone. Please note recent CT in June 2016 demonstrated a nonobstructing stone lower pole right kidney and a nonobstructing stone upper pole left kidney. 3. Small cortical cyst lower pole left kidney. Dictated by... Ariana Chavarria M.D. [facility] A Service of [facility] RADIOLOGY TEXT RESULTS PATIENT: GAIL PAUL LOCATION: [place] [address] : 40 UNIT #: [id number] AGE: [address]: Ronel Mcmullen MD SEX: M ORDER DR: THIS IS AN ELECTRONICALLY VERIFIED REPORT Ariana Chavarria M.D. at 11/14/2016 12:28 PM BRITT/milana TD: 11/13/2016 15:14 JOB #: [id number] MEDICAL IMAGING REPORT Page 1 of 1 COPY
[2016-11-07 04:01] LABS: POC - CKMB <1.0 ng/mL (0.0-7.9); POC - TROPONIN <0.05 ng/mL (<=0.05)
[2016-11-07 04:12] LABS: ARTERIAL BLD GAS O2 SATURATION 94.4 % (90.0-100.0); ARTERIAL BLOOD GAS CARBOXY HB 0.8 %sat (0.0-9.0); ARTERIAL BLOOD GAS HCO3 23.5 mmol/L; ARTERIAL BLOOD GAS MET HB 0.8 %sat (0.0-2.0); ARTERIAL BLOOD GAS PCO2 28.4 mmHg (35.0-45.0); ARTERIAL BLOOD GAS pH 7.525 (7.350-7.450)
[2016-11-07 04:13] LABS: BASOPHIL% 0.2 % (0-2.5); DIFF IND YES; EOSINOPHIL# 0.1 X10e3 (0-0.7); EOSINOPHIL% 0.3 % (0.0-7.0); HEMATOCRIT 29.1 % (38.0-50.0); HEMOGLOBIN 9.4 gm/dL (13.0-16.0); LYMPHOCYTE# 0.5 X10e3 (1.0-3.5); LYMPHOCYTE% 2.5 % (17.0-45.0); MEAN CELL VOLUME 82.7 FL (83-96); MEAN CORPUSCULAR HEMOGLOBIN 26.8 PG (28-34); MEAN CORPUSCULAR HGB CONC 32.4 g/dL (30-36); MEAN PLATELET VOLUME 9.4 FL (6.5-11.5); MONOCYTE# 1.5 X10e3 (0-1.0); MONOCYTE% 6.9 % (3.0-12.0); NEUTROPHIL# 19.8 X10e3 (1.5-7.1); NEUTROPHIL% 90.1 % (40-75); PLATELET COUNT 180 X10e3 (140-420); RED BLOOD COUNT 3.51 X10e (3.90-5.60); RED CELL DISTRIBUTION WIDTH 20.4 % (11.0-15.5)
[2016-11-07 04:13] LABS: ARTERIAL BLOOD GAS ALLEN TEST NORMAL; ARTERIAL BLOOD GAS ART SITE LEFT RADIAL; ARTERIAL BLOOD GAS PO2 72.7 mmHg (80.0-100); ARTERIAL DRAW? YES
[2016-11-07 04:14] LABS: ARTERIAL BLOOD GAS DELIVERY ROOM AIR
[~2016-11-07 04:30] MED LIST: FLOMAX0.4 M1 PO; LORTAB 5/500 TA1 TA1 PO; TYLENOL
[2016-11-07 04:32] LABS: ALBUMIN SERUM 2.1 g/dL (3.5-5.0); ALKALINE PHOSPHATASE 187 U/L (32-92); ALT (SGPT) 19 U/L (10-40); AST (SGOT) 23 U/L (10-42); BILIRUBIN, DIRECT 0.4 mg/dL (0.0-0.2); BILIRUBIN,INDIRECT 0.6 mg/dL (0.0-0.9); BLOOD UREA NITROGEN 29 mg/dL (9-23); BUN/CREATININE RATIO 26.36; CALCIUM SERUM 7.5 mg/dL (8.4-10.2); CARBON DIOXIDE 24 mmol/L (22-31); CHLORIDE 102 mmol/L (100-111); CREATININE SERUM 1.1 mg/dL (0.6-1.4); GLOM FILT RATE Estimated ABOVE60 mL/min (>60); GLUCOSE FASTING 124 mg/dL (70-110); PROTEIN TOTAL SERUM 5.2 g/dL (6.0-8.3); SODIUM 135 mmol/L (135-145)
[2016-11-07 04:34] LABS: POTASSIUM 2.9 mmol/L (3.5-5.1)
[2016-11-07 04:35] LABS: PLATELET ESTIMATE DECREASED (NORMAL)
[2016-11-07 04:36] LABS: OVALOCYTES PRESENT; POIKILOCYTOSIS SL; TARGET CELLS SL
[2016-11-07 05:24] LABS: URINE SOURCE CLEAN CATCH
[2016-11-07 05:32] LABS: URINE APPEARANCE CLOUDY; URINE BILIRUBIN NEG (NEG); URINE BLOOD 4+ (NEG); URINE COLOR YELLOW; URINE GLUCOSE NORM (NORM); URINE KETONE NEG (NEG); URINE LEUKOCYTE ESTERASE 3+ (NEG); URINE NITRATE NEG (NEG); URINE PROTEIN 1+ (NEG); URINE SPECIFIC GRAVITY 1.015 (1.003-1.035); URINE UROBILINOGEN NORM (NORM)
[2016-11-07] MEDS ORDERED: HYDROCODON-ACE1 EAC7 PO (05:41)
[2016-11-07] MEDS ORDERED: LEVOTHYROXINE150 MCG PO (05:42)
[2016-11-07] MEDS ORDERED: OMEPRAZOLE20 M1 PO (05:42)
[2016-11-07] MEDS ORDERED: VITAMIN C500 M2 PO (05:43)
[2016-11-07] MEDS ORDERED: LOPRESSOR PO (05:43)
[2016-11-07] MEDS ORDERED: IRON1 TAB PO (05:43)
[2016-11-07 05:51] LABS: UWBCS1 AUWI INNUM (0-5)
[2016-11-07 05:51] LABS: POC - CKMB 1.1 ng/mL (0.0-7.9); POC - TROPONIN <0.05 ng/mL (<=0.05)
[2016-11-07 05:54] LABS: CULTURE INDICATED? YES; URINE BACTERIA AUWI 2+ (NEGATIVE); URINE MUCUS PRESENT
[2016-11-07 06:55] LABS: INR 1.1; PARTIAL THROMBOPLASTIN TIME 30.2 SECONDS (23.5-31.3); PROTHROMBIN TIME (PATIENT) 11.8 SECONDS (9.6-11.5)
[2016-11-07] MEDS ORDERED: LOVENOX30 MG/0.3 INJ (10:35)
[2016-11-07 14:12] LABS: MEAN CELL VOLUME 82.6 FL (83-96); MEAN CORPUSCULAR HEMOGLOBIN 26.6 PG (28-34); MEAN CORPUSCULAR HGB CONC 32.2 g/dL (30-36); MEAN PLATELET VOLUME 9.2 FL (6.5-11.5); RED BLOOD COUNT 3.39 X10e (3.90-5.60); RED CELL DISTRIBUTION WIDTH 20.6 % (11.0-15.5); WHITE BLOOD COUNT 22.7 X10e3 (4.0-10.5)
[2016-11-07 14:39] LABS: BLOOD UREA NITROGEN 28 mg/dL (9-23); BUN/CREATININE RATIO 23.33; CALCIUM SERUM 7.4 mg/dL (8.4-10.2); CARBON DIOXIDE 23 mmol/L (22-31); CHLORIDE 107 mmol/L (100-111); CREATININE SERUM 1.2 mg/dL (0.6-1.4); GLOM FILT RATE Estimated ABOVE60 mL/min (>60); GLUCOSE FASTING 90 mg/dL (70-110); POTASSIUM 4.2 mmol/L (3.5-5.1); SODIUM 137 mmol/L (135-145)
[2016-11-08 05:49] LABS: HEMATOCRIT 28.8 % (38.0-50.0); HEMOGLOBIN 9.3 gm/dL (13.0-16.0); MEAN CELL VOLUME 82.2 FL (83-96); MEAN CORPUSCULAR HEMOGLOBIN 26.5 PG (28-34); MEAN CORPUSCULAR HGB CONC 32.2 g/dL (30-36); MEAN PLATELET VOLUME 9.1 FL (6.5-11.5); RED BLOOD COUNT 3.51 X10e (3.90-5.60); RED CELL DISTRIBUTION WIDTH 20.3 % (11.0-15.5); WHITE BLOOD COUNT 25.2 X10e3 (4.0-10.5)
[2016-11-08 06:43] LABS: BLOOD UREA NITROGEN 26 mg/dL (9-23); BUN/CREATININE RATIO 21.66; CALCIUM SERUM 7.7 mg/dL (8.4-10.2); CARBON DIOXIDE 23 mmol/L (22-31); CHLORIDE 106 mmol/L (100-111); CHOLESTEROL 143 mg/dL (0-200); CREATININE SERUM 1.2 mg/dL (0.6-1.4); GLOM FILT RATE Estimated ABOVE60 mL/min (>60); GLUCOSE FASTING 81 mg/dL (70-110); HDL CHOLESTEROL 9 mg/dL (29-75); LDL CHOLESTEROL 96 mg/dL (-130); LDL/HDL RATIO 11 RATIO (0-4); MAGNESIUM 1.7 mg/dL (1.6-3.0); POTASSIUM 4.3 mmol/L (3.5-5.1); SODIUM 138 mmol/L (135-145); TRIGLYCERIDES 189 mg/dL (10-160)
[2016-11-09 06:14] LABS: HEMATOCRIT 28.5 % (38.0-50.0); HEMOGLOBIN 9.2 gm/dL (13.0-16.0); MEAN CELL VOLUME 82.8 FL (83-96); MEAN CORPUSCULAR HEMOGLOBIN 26.7 PG (28-34); MEAN CORPUSCULAR HGB CONC 32.3 g/dL (30-36); MEAN PLATELET VOLUME 9.7 FL (6.5-11.5); RED BLOOD COUNT 3.44 X10e (3.90-5.60); RED CELL DISTRIBUTION WIDTH 20.2 % (11.0-15.5); WHITE BLOOD COUNT 19.6 X10e3 (4.0-10.5)
[2016-11-09 06:45] LABS: BUN/CREATININE RATIO 19.23; CALCIUM SERUM 7.4 mg/dL (8.4-10.2); CREATININE SERUM 1.3 mg/dL (0.6-1.4); POTASSIUM 4.4 mmol/L (3.5-5.1)
[2016-11-10 05:38] LABS: HEMATOCRIT 26.5 % (38.0-50.0); HEMOGLOBIN 8.7 gm/dL (13.0-16.0); MEAN CELL VOLUME 81.9 FL (83-96); MEAN CORPUSCULAR HEMOGLOBIN 26.9 PG (28-34); MEAN CORPUSCULAR HGB CONC 32.8 g/dL (30-36); MEAN PLATELET VOLUME 8.9 FL (6.5-11.5); RED BLOOD COUNT 3.24 X10e (3.90-5.60); RED CELL DISTRIBUTION WIDTH 19.6 % (11.0-15.5); WHITE BLOOD COUNT 15.5 X10e3 (4.0-10.5)
[2016-11-10 06:02] LABS: BUN/CREATININE RATIO 21.66; CALCIUM SERUM 7.7 mg/dL (8.4-10.2); CREATININE SERUM 1.2 mg/dL (0.6-1.4); GLOM FILT RATE Estimated 58.4 mL/min (>60); POTASSIUM 3.8 mmol/L (3.5-5.1)
[2016-11-11 06:04] LABS: HEMATOCRIT 26.4 % (38.0-50.0); HEMOGLOBIN 8.5 gm/dL (13.0-16.0); MEAN CELL VOLUME 82.5 FL (83-96); MEAN CORPUSCULAR HEMOGLOBIN 26.5 PG (28-34); MEAN CORPUSCULAR HGB CONC 32.2 g/dL (30-36); MEAN PLATELET VOLUME 9.2 FL (6.5-11.5); RED BLOOD COUNT 3.2 X10e (3.90-5.60); RED CELL DISTRIBUTION WIDTH 18.4 % (11.0-15.5); WHITE BLOOD COUNT 12.7 X10e3 (4.0-10.5)
[2016-11-11 06:32] LABS: BUN/CREATININE RATIO 21.81; CALCIUM SERUM 7.6 mg/dL (8.4-10.2); CREATININE SERUM 1.1 mg/dL (0.6-1.4); GLOM FILT RATE Estimated 64.9 mL/min (>60); POTASSIUM 3.8 mmol/L (3.5-5.1)
[2016-11-12 08:20] LABS: BASOPHIL# 0.1 X10e3 (0-0.3); BASOPHIL% 0.7 % (0-2.5); EOSINOPHIL# 0.1 X10e3 (0-0.7); EOSINOPHIL% 0.6 % (0.0-7.0); HEMATOCRIT 26.3 % (38.0-50.0); HEMOGLOBIN 8.5 gm/dL (13.0-16.0); LYMPHOCYTE# 0.7 X10e3 (1.0-3.5); LYMPHOCYTE% 5.4 % (17.0-45.0); MEAN CELL VOLUME 82.8 FL (83-96); MEAN CORPUSCULAR HEMOGLOBIN 26.7 PG (28-34); MEAN CORPUSCULAR HGB CONC 32.3 g/dL (30-36); MEAN PLATELET VOLUME 8.9 FL (6.5-11.5); MONOCYTE% 7.3 % (3.0-12.0); NEUTROPHIL# 11.7 X10e3 (1.5-7.1); PLATELET COUNT 185 X10e3 (140-420); RED BLOOD COUNT 3.18 X10e (3.90-5.60); RED CELL DISTRIBUTION WIDTH 18.4 % (11.0-15.5); WHITE BLOOD COUNT 13.5 X10e3 (4.0-10.5)
[2016-11-12 08:24] LABS: DIFF IND NO
[2016-11-12 08:48] LABS: CALCIUM SERUM 7.9 mg/dL (8.4-10.2); CREATININE SERUM 1.2 mg/dL (0.6-1.4); GLOM FILT RATE Estimated 58.4 mL/min (>60); POTASSIUM 4.3 mmol/L (3.5-5.1)
[2016-11-12 15:05] LABS: HEMATOCRIT 26.4 % (38.0-50.0); HEMOGLOBIN 8.4 gm/dL (13.0-16.0)
[2016-11-13 07:26] LABS: HEMOGLOBIN 8.4 gm/dL (13.0-16.0); MEAN CELL VOLUME 82.8 FL (83-96); MEAN CORPUSCULAR HEMOGLOBIN 26.6 PG (28-34); MEAN CORPUSCULAR HGB CONC 32.2 g/dL (30-36); MEAN PLATELET VOLUME 9.4 FL (6.5-11.5); RED BLOOD COUNT 3.14 X10e (3.90-5.60); RED CELL DISTRIBUTION WIDTH 18.3 % (11.0-15.5); WHITE BLOOD COUNT 12.1 X10e3 (4.0-10.5)
[2016-11-13 08:05] LABS: BUN/CREATININE RATIO 17.5; CALCIUM SERUM 7.8 mg/dL (8.4-10.2); CREATININE SERUM 1.2 mg/dL (0.6-1.4); GLOM FILT RATE Estimated 58.4 mL/min (>60); POTASSIUM 3.9 mmol/L (3.5-5.1)
[2016-11-14 05:36] LABS: HEMATOCRIT 25.3 % (38.0-50.0); HEMOGLOBIN 8.2 gm/dL (13.0-16.0); MEAN CELL VOLUME 83.5 FL (83-96); MEAN CORPUSCULAR HGB CONC 32.4 g/dL (30-36); MEAN PLATELET VOLUME 8.9 FL (6.5-11.5); RED BLOOD COUNT 3.03 X10e (3.90-5.60); RED CELL DISTRIBUTION WIDTH 17.9 % (11.0-15.5); WHITE BLOOD COUNT 10.2 X10e3 (4.0-10.5)
[2016-11-14 06:25] LABS: BUN/CREATININE RATIO 16.66; CALCIUM SERUM 7.5 mg/dL (8.4-10.2); CREATININE SERUM 1.2 mg/dL (0.6-1.4); GLOM FILT RATE Estimated 58.4 mL/min (>60); POTASSIUM 4.2 mmol/L (3.5-5.1)
[2016-11-14] MEDS ORDERED: COMBIVENT U/D3 M3 INH (16:24)
[2016-11-14] MEDS ORDERED: AMIODARONE PO (16:26)
[2016-11-14] MEDS ORDERED: LOPRESSOR PO (16:27)
[2016-11-14] MEDS ORDERED: LASIX20 MG PO (16:31)
[2016-11-14] MEDS ORDERED: IRON1 TAB PO (16:34)
[2016-11-14] MEDS ORDERED: SYNTHROID175 MCG PO (16:36)
== END 2016-11-14 20:19 | disposition home health service (06) | DRG 871 ==
LOC: CED 04:30 → CEDOF 06:33 → C3A PCU 17:38
PROVIDERS: Emergency Medicine; Family Medicine; Internal Medicine Cardiovascular Disease; Nurse Practitioner
PROC: B246YZZ Ultrasonography of Right and Left Heart using Other Contrast (ICD-10-PCS; principal; 2016-11-07)
DX: A41.9 Sepsis, unspecified organism (principal); J96.20 Acute and chronic respiratory failure, unspecified whether with hypoxia or hypercapnia; I50.31 Acute diastolic (congestive) heart failure; E44.0 Moderate protein-calorie malnutrition; N39.0 Urinary tract infection, site not specified; R65.20 Severe sepsis without septic shock; Z85.038 Personal history of other malignant neoplasm of large intestine; Z85.21 Personal history of malignant neoplasm of larynx; Z85.51 Personal history of malignant neoplasm of bladder; J44.9 Chronic obstructive pulmonary disease, unspecified; K21.9 Gastro-esophageal reflux disease without esophagitis; E03.9 Hypothyroidism, unspecified; E87.6 Hypokalemia; R31.9 Hematuria, unspecified; D64.9 Anemia, unspecified
CPT/HCPCS: 36600; 71010; 71020; 74000; 76770; 80048; 80061; 80076; 80202; 81003; 82308; 82553; 82803; 83605; 83735; 83880; 84132; 84439; 84443; 84484; 85014; 85018; 85025; 85027; 85610; 85730; 87040; 87086; 92610; 93005; 93306; 93970; 94640; 94760; 96361; 96365; 97110; 97116; 97162; 97167; 97530; 97535; 99291; G8978-GP; G8979-GP; G8987-GO; G8988-GO; G8996-GN; G8997-GN; G8998-GN; J1170; J1650; J1940; J2270; J2543; J2765; J3260; J3370

== ENCOUNTER 2016-11-15 17:06 | Inpatient (IN) | payer OTHER ==
--- NOTE | ~2016-11-15 | CR4 ---
[facility] A Service of [facility] & [facility] RADIOLOGY TEXT RESULTS PATIENT: GAIL PAUL LOCATION: [facility] 466-01 : 40 UNIT #: [id number] AGE: [address]: Ronel Mcmullen MD SEX: M ORDER DR: [id number] [facility] [address] [place], [place] [address] [id number] I MR#: [id number] Acc #: [id number] NAME: GAIL PAUL : 1940 SEX: M STUDY DATE/TIME: 11/16/2016 17:13 UNIT: [facility] ROOM: [facility] STUDY DESCRIPTION: CR Abdomen Flat Upright or Dec Attending Physician: Ronel Mcmullen M.D. Ordering Physician: Chico Mcnally M.D. Primary Care Physician: Renetta Jones A.P.R.N. MEDICAL IMAGING REPORT This report is preliminary unless electronic signature is present EXAM Abdomen flat and upright HISTORY Abdomen pain and distension for 3 days. FINDINGS Flat and upright views of the abdomen demonstrate moderately severe gaseous distension of small bowel throughout the abdomen and pelvis measuring up to 6.7 cm in the right upper quadrant and 5.3 cm in the left lower quadrant. The degree of small bowel dilatation is similar to CT yesterday and is concerning for distal mechanical small bowel obstruction. No free air. No colonic dilatation. Consolidation or atelectasis in the left base is stable compared to the CT. IMPRESSION 1. Moderately severe diffuse gaseous distension of small bowel throughout the abdomen and pelvis is similar to CT yesterday and is concerning for distal mechanical small bowel obstruction. 2. No free air. 3. Stable patchy consolidation or atelectasis in the medial left lung base. Dictated by... Demetrius Foley M.D. THIS IS AN ELECTRONICALLY VERIFIED REPORT Demetrius Foley M.D. at 11/17/2016 1:26 PM DFL/rigo TD: 11/17/2016 04:37 JOB #: [id number] [facility] A Service of [facility] & [facility] RADIOLOGY TEXT RESULTS PATIENT: GAIL PAUL LOCATION: [place] [address] : 40 UNIT #: [id number] AGE: [address]: Ronel Mcmullen MD SEX: M ORDER DR: MEDICAL IMAGING REPORT Page 1 of 1 COPY
--- NOTE | ~2016-11-15 | CR71 ---
[facility] A Service of [facility] & [facility] RADIOLOGY TEXT RESULTS PATIENT: GAIL PAUL LOCATION: [facility] 466-01 : 40 UNIT #: [id number] AGE: [address]: Brendan Nieves MD SEX: M ORDER DR: [id number] [facility] [address] [place], [place] [address] [id number] E MR#: [id number] Acc #: [id number] NAME: GAIL PAUL : 1940 SEX: M STUDY DATE/TIME: 11/15/2016 16:55 UNIT: [place] ROOM: STUDY DESCRIPTION: CR Chest Single View Attending Physician: Jesus Walsh M.D. Ordering Physician: Jesus Walsh M.D. Primary Care Physician: Renetta Jones A.P.R.N. MEDICAL IMAGING REPORT This report is preliminary unless electronic signature is present EXAM Portable AP view of the chest COMPARISON November 12, 2016, November 09, 2016 and November 07, 2016. INDICATIONS 76-year-old male with dyspnea and cough since last night. Hypotension. History of colon, lung, bladder and throat cancer. CHF. FINDINGS Evaluation of the left pulmonary apex is limited by the patient's overlapping oxygen mask. No evidence of pneumothorax. Evaluation of the left chest is limited by leftward rotation. There is likely a stable loculated left apical pleural effusion and/or pleuroparenchymal scarring. There appear to be slightly increased opacities in the left lung base, which may reflect atelectasis or pneumonia. There is a background of emphysema. Interstitial opacities appear improved in the right midlung and lung base with residual right basilar atelectasis or pneumonia. Cardiomediastinal silhouette not well evaluated due to low lung volumes and overlap of the diaphragms. Increasing gaseous distension of bowel loops in the upper abdomen. This may reflect ileus. Correlation to exclude signs of bowel obstruction recommended. IMPRESSION 1. Improved interstitial opacities in the right midlung and right base with residual right basilar atelectasis versus pneumonia. Apparent increase in left basilar atelectasis versus pneumonia. There is likely stable trace loculated left pleural effusion versus pleuroparenchymal thickening. 2. Increasing gaseous distension of bowel loops throughout the upper abdomen. Correlation to exclude signs of bowel obstruction recommended. [facility] A Service of [facility] & [facility] RADIOLOGY TEXT RESULTS PATIENT: GAIL PAUL LOCATION: [place] [address] : 40 UNIT #: [id number] AGE: [address]: Brendan Nieves MD SEX: M ORDER DR: Dictated by... Jean Carlos Garnica M.D. THIS IS AN ELECTRONICALLY VERIFIED REPORT Jean Carlos Garnica M.D. at 11/19/2016 8:48 PM BLM/psc TD: 11/15/2016 20:16 JOB #: [id number] MEDICAL IMAGING REPORT Page 1 of 1 COPY
--- NOTE | ~2016-11-15 | CO ---
Unit #: [id number] #: [id number] Patient: GAIL PAUL [id number] [address] [place], [place] [address] [id number] I MR#: [id number] NAME: GAIL PAUL ROOM: 466 Age: 76 Sex: M Admission Date: 11/15/2016 : 1940 Attending Physician: Brendan Nieves M.D. Primary Care Physician: Renetta Jones A.P.R.N. CONSULTATION REPORT Mr. Paul is a 76-year-old male who was recently discharged from the hospital on 12/15/16. He was admitted at that time for A-fib, rapid ventricular response, acute diastolic congestive heart failure and pneumonia. He was treated with inhaled bronchodilators, IV Solu-Medrol, broad spectrum antibiotics, diuretics. He was placed on anticoagulation and discharged on amiodarone, DuoNeb, Lopressor, Lasix, iron, [place], Prilosec, Synthroid. Apparently, he was not put on anticoagulation. His oxygen requirements - he was sent home on home oxygen. There was trouble setting that up. He also had some abdominal pain. He came back and was admitted. During his hospitalization, he had lower extremity venous Doppler study which was negative for DVT. PAST HISTORY Significant for: 1. Laryngeal cancer, status post laryngectomy. 2. Permanent stoma. 3. Bladder cancer, status post cystectomy and ileal conduit. 4. History of non-small cell lung cancer, status post radiation. 5. History of COPD. 6. History of rectal cancer. 7. Hypothyroidism. 8. Atrial fibrillation. 9. COPD. 10. Laryngeal cancer. 11. Bladder cancer. 12. Chronic anemia. 13. Hypothyroidism. SURGERIES 1. Cystectomy with ileal conduit. 2. Laryngectomy with trach stoma. 3. Hernia repair. ALLERGIES No known allergies. MEDICINES 1. Albuterol. 2. Amiodarone. 3. Metoprolol. 4. Lasix. 5. Iron. 6. Prilosec. 7. Hydrocodone. Unit #: [id number] #: [id number] Patient: GAIL PAUL 8. Synthroid. SOCIAL HISTORY Lives with . No tobacco or alcohol use. FAMILY HISTORY Negative for malignancy. REVIEW OF SYSTEMS As per HPI. PHYSICAL EXAMINATION VITAL SIGNS: Blood pressure is 138/52, pulse 69, respiratory rate 16, afebrile. HEENT: Normocephalic, atraumatic. Pupils equal, round, reactive. Sclerae are not icteric. Nasal passages patent. Oral cavity patent. Trach stoma patent. NECK: Postop. LUNGS: Crackles in the bases. CARDIAC: Regular rate and rhythm. Could not appreciate murmur, rub or gallop. ABDOMEN: Nontender. Bowel sounds present. No hepatosplenomegaly. EXTREMITIES: Without clubbing, cyanosis or edema. NEURO: Awake, alert, oriented x3. Cranial nerves intact. Muscle strength symmetric bilaterally. Affect calm. SKIN: Warm and dry. DIAGNOSTIC STUDIES LABORATORY: Laboratory studies reviewed. IMAGING: Chest x-ray and CT scan reviewed. IMPRESSION 1. Chronic respiratory failure. 2. Chronic obstructive pulmonary disease. 3. Laryngectomy rule out cancer with stoma. 4. History of bladder cancer, status post cystectomy and ileal conduit. 5. History of non-small cell lung cancer, status post chemoradiation. 6. Atrial fibrillation, rapid ventricular response. PLAN Administer O2. Continue Duo-Nebs. Recheck lower extremity venous Dopplers to rule out any possibility of DVT. Perinephric hemorrhage and ileus. Defer to surgery and urology. Place on SCD hose. Will make further recommendations pending this. Dictated by... Michael Doherty M.D. BLOSSOM/pippa TD: 11/19/2016 07:40 JOB #: [id number] Unit #: [id number] #: [id number] Patient: GAIL PAUL CONSULTATION REPORT Page 1 of 1 X Michael Doherty MD CONSULTATION REPORT
--- NOTE | ~2016-11-15 | CT4 ---
[facility] A Service of [facility] & [facility] RADIOLOGY TEXT RESULTS PATIENT: GAIL PAUL LOCATION: B 456-01 : 40 UNIT #: [id number] AGE: [address]: Ronel Mcmullen MD SEX: M ORDER DR: [id number] [facility] [address] [place], [place] [address] [id number] E MR#: [id number] Acc #: [id number] NAME: GAIL PAUL : 1940 SEX: M STUDY DATE/TIME: 11/15/2016 17:29 UNIT: [facility] ROOM: STUDY DESCRIPTION: CT Abd and Pelv Wo Cont Attending Physician: Jesus Walsh M.D. Ordering Physician: Jesus Walsh M.D. Primary Care Physician: Renetta Jones A.P.R.N. MEDICAL IMAGING REPORT This report is preliminary unless electronic signature is present EXAM Abdomen and pelvis CT without contrast HISTORY Hypotension with abdominal pain and nausea, onset today. TECHNIQUE This CT exam was performed with one or more of the following radiation dose reduction techniques: automatic exposure control, adjustment of mA and/or kV according to patient size, and iterative reconstruction. Axial images were obtained without contrast FINDINGS There is consolidation with volume loss and probable chronic atelectasis and fibrosis at both lung based, much worse on the left than on the right. This shows worsening since the previous CT from 07/02/2016. In the abdomen the liver, spleen and pancreas are normal in size. The right kidney contains a 3 mm nonobstructing stone. The left kidney contains a 3 mm nonobstructing stone with hydronephrosis. There is hyperdense fluid seen in the perirenal space on the left suggesting a perinephric hemorrhage. This is new since the previous examination. The hematoma extends down along the psoas muscle into the upper pelvis. It displaces the kidney anteriorly. The involvement measures about 5 x 6 cm transverse diameter and 10 cm from superior to inferior. It is accompanied by distended bowel loops with air-fluid levels predominately involving the colon. This is more suggestive of an ileus pattern than a mechanical obstruction. No free fluid is seen in the pelvic cul-de-sac. There is old healed compression fracture of L1. There is no evidence of aortic aneurysm. Dilated small bowel loops are seen in the mid abdomen. There is significant dilatation with maximum measured diameter of 6 cm. This likely reflects an ileus related to the acute hemorrhage. The possibility [facility] A Service of [facility] & [facility] RADIOLOGY TEXT RESULTS PATIENT: GAIL PAUL LOCATION: B 456-01 : 40 UNIT #: [id number] AGE: [address]: Ronel Mcmullen MD SEX: M ORDER DR: of a mechanical small bowel obstruction cannot be excluded but the proximal small bowel loops are only mildly dilated through the duodenum and the stomach is nondilated. The colon is nondilated. IMPRESSION 1. Perinephric hemorrhage on the left in the inferior pararenal space predominantly. Overall the area of hematoma collection measure about 5 x 6 x 10 cm. 2. Nonobstructing bilateral kidney stones. 3. Dilated small bowel loops in the mid abdomen and toward the right side. Question ileus versus mechanical bowel obstruction. Dictated by... Chico Bright M.D. THIS IS AN ELECTRONICALLY VERIFIED REPORT Chico Brgiht M.D. at 11/16/2016 4:56 PM Stephanie TD: 11/15/2016 20:45 JOB #: [id number] MEDICAL IMAGING REPORT Page 1 of 1 COPY
--- NOTE | ~2016-11-15 | EKG ---
PATIENT: NAVI PAULER UNIT #: [id number] Ventricular Rate: 68 BPM Atrial Rate: 68 BPM P-R Interval: 158 ms QRS Duration: 82 ms Q-T Interval: 434 ms QTC Calculation(Bezet): 461 ms P [place]: 36 degrees Calculated R [place]: -30 degrees Calculated T [place]: 63 degrees Diagnosis Line: Normal sinus rhythm Diagnosis Line: Left axis deviation Diagnosis Line: Inferior infarct , age undetermined Diagnosis Line: Abnormal ECG Diagnosis Line: When compared with ECG of 08-NOV-2016 06:54, Diagnosis Line: Inferior infarct is now Present Diagnosis Line: Confirmed by LEEANNE MONTANA MD ([id number]) on 11/16/2016 Diagnosis Line: 4:36:51 PM INTERPRETING MD: RUBÉN LIZAMA
--- NOTE | ~2016-11-15 | DS ---
Unit #: [id number] #: [id number] Patient: GAIL PAUL [id number] [place] [id number] [facility]. [place], [place] [address] [id number] I MR#: [id number] NAME: GAIL PAUL ROOM: 466 Age: 76 Sex: M Admission Date: 11/15/2016 : 1940 Discharge Date: 11/20/2016 Attending Physician: Brendan Nieves M.D. Primary Care Physician: Renetta Jones A.P.R.N. DISCHARGE SUMMARY DISCHARGE DIAGNOSES 1. Small bowel obstruction. 2. Perinephric hematoma. 3. Chronic respiratory failure. 4. Severe protein calorie malnutrition. 5. Atrial fibrillation with rapid ventricular response. 6. History of laryngeal carcinoma. 7. History of bladder cancer. 8. History of nonsmall cell lung cancer. 9. Rectal cancer. HOSPITAL COURSE The patient is a 76-year-old male who presented to [facility] Emergency Department with the complaint of some abdominal pain. He had initially presented because the oxygen company was unable to provide him with oxygen, and so he re-presented to the emergency department. However, in the emergency department, he described some significant abdominal pain, and a CT of his abdomen and pelvis was done, and he was noted to have a perinephric hematoma that had surrounded his left kidney that was 5 x 6 x 10 cm. Initially, he was noted to have findings concerning for ileus versus small bowel obstruction. The patient was admitted and made n.p.o. He was initially going to be taken to the operating room for his significant small bowel obstruction, but it was noted that he was recently status post cystectomy and recent ileal conduit for his bladder cancer. Given concern for the small bowel obstruction being caused by adhesions and this recent urological study done at [facility], it was felt that the best course of action was to transfer the patient to [facility] where his usual surgeons could tend to him. At this time, a bed is available, and patient has been transferred to [facility] as mentioned. DISCHARGE MEDICATIONS 1. Synthroid 175 mcg daily. 2. Ferrous gluconate 65 mg p.o. b.i.d. 3. Lasix 20 mg daily. 4. Cordarone 200 mg p.o. daily. 5. Combivent per nebulizer q.6 hours as needed for shortness of breath. 6. Lopressor 12.5 mg p.o. t.i.d. 7. Omeprazole 20 mg daily. 8. Hydrocodone and acetaminophen 1 p.o. q.6 hours p.r.n. pain. Unit #: [id number] #: [id number] Patient: GAIL PAUL FOLLOWUP Patient is being sent to [facility] for surgical followup. Appropriate followup can be determined upon discharge from that facility. Dictated by... Jenn Steward/gissell TD: 01/02/2017 17:11 JOB #: [id number] DISCHARGE SUMMARY Page 1 of 1 X Brendan Nieves MD X DISCHARGE SUMMARY
--- NOTE | ~2016-11-15 | US77 ---
[facility] A Service of [facility] & [facility] RADIOLOGY TEXT RESULTS PATIENT: GAIL PAUL LOCATION: [facility] 466-01 : 40 UNIT #: [id number] AGE: [address]: Ronel Mcmullen MD SEX: M ORDER DR: [id number] [facility] [address] [place], [place] [address] [id number] I MR#: [id number] Acc #: [id number] NAME: GAIL PAUL : 1940 SEX: M STUDY DATE/TIME: 11/17/2016 10:41 UNIT: [facility] ROOM: Critical access hospital STUDY DESCRIPTION: US Kidney Bilateral Complete Attending Physician: Ronel Mcmullen M.D. Ordering Physician: Ashok Eastman M.D. Primary Care Physician: Renetta Jones A.P.R.N. MEDICAL IMAGING REPORT This report is preliminary unless electronic signature is present EXAM Renal ultrasound INDICATIONS Shortness of air. Renal failure. GFR of 31.5. FINDINGS The right kidney measures 10.6 cm. The left kidney measures 12.2 cm. Increased echogenicity of the renal cortex is indicative of chronic medical renal disease. There is some renal cortical atrophy. Mild hydronephrosis of both renal collecting systems is again noted. There is a perinephric fluid collection/hematoma associated with the left kidney. Please refer to the CT of 11/15/2016 for details. IMPRESSION 1. Chronic medical renal disease. Mild bilateral hydronephrosis is unchanged from the recent CT. Left perinephric fluid collection/hematoma. Please refer to the CT report for details. Dictated by... Dannie Michaud M.D. THIS IS AN ELECTRONICALLY VERIFIED REPORT Dannie Michaud M.D. at 11/18/2016 10:43 AM MIKALA/rigo TD: 11/18/2016 02:50 JOB #: [id number] MEDICAL IMAGING REPORT Page 1 of 1 COPY
--- NOTE | ~2016-11-15 | CR236 ---
[facility] A Service of [facility] & [facility] RADIOLOGY TEXT RESULTS PATIENT: GAIL PAUL LOCATION: [facility] 466-01 : 40 UNIT #: [id number] AGE: [address]: Brendan Nieves MD SEX: M ORDER DR: [id number] [facility] [address] [place], [place] [address] [id number] I MR#: [id number] Acc #: [id number] NAME: GAIL PAUL : 1940 SEX: M STUDY DATE/TIME: 11/18/2016 14:03 UNIT: [facility] ROOM: [facility] STUDY DESCRIPTION: CR Small Bowel Sbft W Films Attending Physician: Ronel Mcmullen M.D. Ordering Physician: Dominick Natarajan M.D. Primary Care Physician: Renetta Jones A.P.R.N. MEDICAL IMAGING REPORT This report is preliminary unless electronic signature is present EXAM Small bowel follow-through study, 11/18/2016 HISTORY Abdomen pain and distension, nausea, vomiting for 5 days. Fluoroscopy time 0. FINDINGS Photographer Scientific image demonstrates moderately severe dilatation of gas-filled small bowel throughout the abdomen and upper pelvis, slightly greater than on CT 11/15/2016. 60 mL of Gastrografin was injected through the patient's NG tube which is positioned with its tip in the proximal stomach, by the ct scan technologist. Multiple serial overhead films were obtained up to 7 hours. There is gradual progression of contrast into the dilated small bowel loops in the abdomen and pelvis up to 5 hours, and the contrast is severely diluted in the small bowel at 7 hours at which point the exam was terminated. Findings are compatible with mechanical small bowel obstruction near the level of the mid small bowel. Gastroesophageal reflux was noted on multiple images. IMPRESSION 1. Findings are characteristic of mechanical small bowel obstruction near the level of the mid small bowel with moderate to moderately severe dilatation of small bowel in the abdomen and pelvis measuring up to approximately 6 cm in diameter. The degree small bowel dilatation is slightly greater than on CT 11/15/2016. Contrast material was severely diluted at 7 hours and the examination was terminated at this point. No contrast was identified in the distal small bowel or colon. [facility] A Service of [facility] & [facility] RADIOLOGY TEXT RESULTS PATIENT: GAIL PAUL LOCATION: [facility] 466-01 : 40 UNIT #: [id number] AGE: [address]: Brendan Nieves MD SEX: M ORDER DR: 2. Gastroesophageal reflux was intermittently noted on multiple overhead images. Dictated by... Demetrius Foley M.D. THIS IS AN ELECTRONICALLY VERIFIED REPORT Demetrius Foley M.D. at 11/19/2016 2:48 PM DFArnie/fallon TD: 11/19/2016 05:39 JOB #: [id number] MEDICAL IMAGING REPORT Page 1 of 1 COPY
--- NOTE | ~2016-11-15 | CR72 ---
[facility] A Service of [facility] & [facility] RADIOLOGY TEXT RESULTS PATIENT: GAIL PAUL LOCATION: [facility] 466-01 : 40 UNIT #: [id number] AGE: [address]: Brendan Nieves MD SEX: M ORDER DR: [id number] [facility] [address] [place], [place] [address] [id number] I MR#: [id number] Acc #: [id number] NAME: GAIL PAUL : 1940 SEX: M STUDY DATE/TIME: 11/19/2016 19:55 UNIT: [facility] ROOM: [facility] STUDY DESCRIPTION: CR Chest Single View Portable Attending Physician: Brendan Nieves M.D. Ordering Physician: Brandon Mcnally M.D. Primary Care Physician: Renetta Jones A.P.R.N. MEDICAL IMAGING REPORT This report is preliminary unless electronic signature is present EXAM Portable chest HISTORY Cough for 12 days. FINDINGS Dense consolidation or atelectasis in the left lung base has increased slightly compared to 11/15/2016. Persistent small left pleural effusion. Chronic probable scarring and pleural thickening over the medial and superior left upper lung. NG tube tip in the proximal stomach 9 cm beyond the EG junction with the side-hole near the level of the EG junction. Right arm approach PICC tip is in the upper SVC. Persistent gaseous distension of small bowel in the upper abdomen corresponds to similar findings on small bowel follow-through yesterday. Dictated by... Demetrius Foley M.D. THIS IS AN ELECTRONICALLY VERIFIED REPORT Demetrius Foley M.D. at 11/20/2016 2:37 PM DFArnie/eros TD: 11/20/2016 00:55 JOB #: [id number] MEDICAL IMAGING REPORT Page 1 of 1 COPY
--- NOTE | ~2016-11-15 | CO ---
Unit #: [id number] #: [id number] Patient: GAIL PAUL [id number] [place] [id number] [facility]. [place], [place] [address] [id number] I MR#: [id number] NAME: GAIL PAUL ROOM: 456 Age: 76 Sex: M Admission Date: 11/15/2016 : 1940 Attending Physician: Ronel Mcmullen M.D. Primary Care Physician: Renetta Jones A.P.R.N. Consultation Date: 11/16/2016 CONSULTATION REPORT HISTORY The patient is a 76-year-old gentleman who was readmitted 24 hours after discharge because of some concerns about his respiratory status and oxygen levels. It is unclear, but I think there may have been some issues with setting up home oxygen. When he came back to the emergency room, however, he was complaining of some abdominal discomfort, and a CT scan was obtained. The CT scan revealed a new perinephric hematoma, some consolidation in the lung bases that was increased from prior study, and some dilated small bowel loops, more consistent with ileus that obstruction, but he has had a recent cystectomy. The patient states he has passed some flatus and has not had any nausea or vomiting. He is admitted for further evaluation. By history, he had recently been started on some Eliquis and had some hematuria, and that was discontinued. He denies any trauma. PAST MEDICAL HISTORY He has a history of chronic respiratory failure. He has laryngeal carcinoma status post tracheal resection with permanent tracheotomy. He had bladder cancer status post cystectomy approximately 3-4 weeks ago at [facility], non-small cell lung cancer, rectal cancer, chronic anemia, hypothyroidism and atrial fibrillation with rapid ventricular response. He has had hernia repair, as well. ALLERGIES No allergies to medication. HOME MEDICATIONS Albuterol, amiodarone, Metoprolol, Lasix, iron, omeprazole, hydrocodone, Synthroid. FAMILY HISTORY Noncontributory. SOCIAL HISTORY Lives at home. Denies the current use of tobacco or alcohol. REVIEW OF SYSTEMS Denies nausea, vomiting, fever, chills, hematemesis, hematochezia, melena. The patient cannot recall when he had his last stool, but he has passed flatus. CURRENT EXAMINATION VITAL SIGNS: Temperature is 97.8, pulse 68 and irregular, respirations 18, blood pressure 109/51. Unit #: [id number] #: [id number] Patient: BEVERLYGAIL GENERAL: Awake, alert, oriented. Answers questions appropriately with the use of his voice assist device. HEENT: Unremarkable except for his tracheotomy. CARDIAC: No murmur. LUNGS: Clear anteriorly, diminished in the bases. ABDOMEN: His abdomen is slightly distended. It is soft without any guarding or rebound. His ileal conduit is viable and functioning. Recent surgical wounds are healing without complications. He has no mass, no guarding, no hernia. EXTREMITIES: No edema. NEUROLOGIC: Grossly intact. DIAGNOSTIC STUDIES LABORATORY: Chemistry shows BUN 27, creatinine 1.7. His baseline creatinine ranges around 1.2 to 1.3. Chemistry is generally unremarkable. INR is 1.1. White count 12,800. Hemoglobin is 8.6; he has ranged between 8.2 and 9.4 over the last month. Platelets are adequate at 186,000. Urinalysis shows 10-25 red cells, 200-300 white cells. IMAGING: Chest x-ray shows increased left basilar atelectasis versus pneumonia with loculated left pleural effusion. CT scan of the abdomen and pelvis shows consolidation and volume loss and fibrosis in the bases of the lungs, left worse than right. He has a left perinephric hematoma measuring 5 cm x 6 cm x 10 cm. Nonobstructing bilateral kidney stones. Dilated small bowel loops in the abdomen. Ileus versus early partial small bowel obstruction. ASSESSMENT AND PLAN A 76-year-old gentleman as outlined. Based on his examination, he, more likely, has a reactive ileus secondary to his pulmonary and renal issues. This may be reactive from the perinephric hematoma, or if he has worsening pneumonia, it certainly could cause a reactive ileus. He has no nausea or vomiting, he is not in distress, and his abdominal exam is benign. Today I will stimulate his bowels, repeat his flat and upright of the abdomen, check further electrolytes. Since he has a history of hypothyroidism, we will check a TSH. H and H will be followed, as well. Dictated by... Chico Mcnally M.D. CLEMENTE/altaf TD: 11/16/2016 09:53 JOB #: [id number] CONSULTATION REPORT Page 1 of 1 X Chico Mcnally MD CONSULTATION REPORT
--- NOTE | ~2016-11-15 | US84 ---
[id number] [facility] [address] [place], [place] [address] [id number] MR#: [id number] Acc #: [id number] NAME: GAIL PAUL : 1940 SEX: M STUDY DATE/TIME: 11/17/2016 10:26 UNIT: C4 ROOM: [facility] STUDY DESCRIPTION: US LE Veins Complete Gurjit Stdy Attending Physician: Ronel Mcmullen M.D. Ordering Physician: Michael Doherty M.D. Primary Care Physician: Renetta Jones A.P.R.N. MEDICAL IMAGING REPORT This report is preliminary unless electronic signature is present EXAM Left lower extremity venous duplex Doppler INDICATIONS Shortness of air for 2 days. Respiratory failure. FINDINGS Murray-scale color Doppler and spectral Doppler ultrasound of the left lower extremity was performed. No deep vein thrombus. The left common femoral vein through the left popliteal vein is widely patent. No calf vein thrombus. IMPRESSION Negative for left lower extremity deep vein thrombosis Dictated by... Dannie Michaud M.D. THIS IS AN ELECTRONICALLY VERIFIED REPORT Dannie Michaud M.D. at 11/18/2016 10:43 AM MIKALA/rigo TD: 11/18/2016 02:53 JOB #: [id number] MEDICAL IMAGING REPORT Page 1 of 1 COPY
--- NOTE | ~2016-11-15 | XA166 ---
[facility] A Service of [facility] & [facility] RADIOLOGY TEXT RESULTS PATIENT: GAIL PAUL LOCATION: C4 466- : 40 UNIT #: [id number] AGE: [address]: Brendan Nieves MD SEX: M ORDER DR: [id number] [facility] [address] [place], [place] [address] [id number] I MR#: [id number] Acc #: [id number] NAME: GAIL PAUL : 1940 SEX: M STUDY DATE/TIME: 11/19/2016 15:17 UNIT: [facility] ROOM: [facility] STUDY DESCRIPTION: XA PICC Line Placement WO Port Attending Physician: Brendan Nieves M.D. Ordering Physician: Brendan Nieves M.D. Primary Care Physician: Renetta Jones A.P.R.N. MEDICAL IMAGING REPORT This report is preliminary unless electronic signature is present EXAM PICC line placement under ultrasound and fluoroscopy HISTORY Long-term access for blood products and TPN. PRE-PROCEDURE The procedure was explained to the patient and/or patient community service representative including risks, benefits, potential complications and potential for alternative forms of treatment. Informed consent was obtained, and prior to initiating the procedure a formal timeout procedure was performed. PROCEDURE Using full standard sterile barrier technique, including caps, gowns, gloves, masks, as well as sterile skin preparation and standard sterile draping, the right arm was prepped and draped in the usual fashion, and real-time sterile ultrasound guidance was used to localize an arm vein and to confirm vessel patency. A hard copy ultrasound image was recorded. Puncture in the right basilic vein. Tip placed in the SVC. Trim length to 38.0 cm. After local anesthesia with 1% Xylocaine, the vein was punctured using real-time sterile ultrasound guidance, and an 0.018 guidewire was advanced into the superior vena cava, using fluoroscopic guidance. A 5 Martiniquais dual-lumen PICC was then measured and deployed with the tip positioned in the superior vena cava. The position of the line was documented with a radiographic image. The line was secured in place with an adhesive dressing and an antibiotic patch was applied. Total fluoro time was 1.0 minutes. Total exposure 2 mGy air kerma. A single spot radiograph and single ultrasound image was recorded. [facility] A Service of [facility] RADIOLOGY TEXT RESULTS PATIENT: GAIL PAUL LOCATION: [place] [address] : 40 UNIT #: [id number] AGE: [address]: Brendan Nieves MD SEX: M ORDER DR: Machine Shorthand Reporter normal report. Right-sided PICC line punctured in the right basilic vein, tip placed in the SVC. Trim length 38 cm. This is of 5-Martiniquais dual lumen total of fluoro time was 1.0 minutes. Total exposure 2 mg air, a single spot radiograph and single ultrasound and 4 corticated Dictated by... Dominick Perez M.D. THIS IS AN ELECTRONICALLY VERIFIED REPORT Dominick Perez M.D. at 11/22/2016 12:00 PM MARCIA/jaquelin TD: 11/19/2016 20:06 JOB #: [id number] MEDICAL IMAGING REPORT Page 1 of 1 COPY
--- NOTE | ~2016-11-15 | HP ---
Unit #: [id number] #: [id number] Patient: GAIL PAUL [id number] [facility] [address] [place], [place] [address] [id number] MR#: [id number] NAME: GAIL PAUL ROOM: Age: 76 Sex: M Admission Date: 11/15/2016 : 1940 Attending Physician: Jesus Walsh M.D. Primary Care Physician: Renetta Jones A.P.R.N. HISTORY AND PHYSICAL CHIEF COMPLAINT Needs to be readmitted per Dr. Doherty. HISTORY OF PRESENT ILLNESS The patient is a 76-year-old male with past medical history of chronic respiratory failure, laryngeal carcinoma, bladder cancer, non-small cell lung cancer, rectal cancer, COPD, chronic anemia, hypothyroidism, atrial fibrillation who presented to the emergency department for evaluation of the above. Of note, the patient was hospitalized at [facility] 11/07 through 11/14/2016 for acute respiratory failure and atrial fibrillation with rapid ventricular response. He was seen in consultation by Cardiology (Dr. Lopez). He had an echocardiogram that showed an ejection fraction of 55% to 60%. He was initially started on Eliquis, however, developed acute hematuria and this was discontinued. Regarding the acute respiratory failure, he was seen in consultation by Dr. Doherty. There was initially concern for healthcare-associated pneumonia and he was placed on broad-spectrum antibiotics which were eventually de-escalated and ultimately discontinued. He did receive Solu-Medrol which was also discontinued. It does not appear that he was discharged home on steroids or antibiotics. Upon returning home, the patient was doing okay. He apparently tolerated some p.o. today. He was called by either Dr. Doherty's office or possibly the oxygen company stating that he needed to go to the hospital because they were unable to set up his oxygen. He presented to the emergency department for evaluation. Oxygen saturation was 99% on 3 liters per trach mask upon arrival. Also of note, the patient developed abdominal pain today. He describes the pain as "pain." There are no exacerbating or alleviating factors. His last bowel movement was yesterday. He states that he last passed gas yesterday. He has not had any vomiting. In the emergency department, a CT of the abdomen and pelvis was done and showed a perinephric hematoma surrounding the left kidney measuring 5 x 6 x 10 cm. Additionally, findings concerning for ileus versus small bowel obstruction. The patient is being admitted to [facility] for evaluation and further treatment. PAST MEDICAL HISTORY 1. Admission to [facility] 11/07 through 11/14/2016 for acute respiratory failure and atrial fibrillation with rapid ventricular response. Please see HPI for details. 2. Atrial fibrillation, followed by Dr. Lopez., not on chronic Unit #: [id number] #: [id number] Patient: BEVERLYGAIL anticoagulation. 3. Chronic respiratory failure, followed by Dr. Doherty. 4. History of laryngeal cancer with permanent trach stoma. 5. History of bladder cancer, status post cystectomy with ileal conduit. 6. History of non-small cell lung cancer, status post chemoradiation. 7. History of rectal cancer. 8. COPD. 9. Chronic anemia. 10. Hypothyroidism. PAST SURGICAL HISTORY 1. Cystectomy with ileal conduit. 2. Laryngectomy with trach stoma. 3. Hernia repair. ALLERGIES No known allergies. HOME MEDICATIONS 1. Albuterol. 2. Amiodarone. 3. Metoprolol. 4. Lasix. 5. Iron. 6. Omeprazole. 7. Hydrocodone. 8. Synthroid. Home medications will need to be reviewed and verified. SOCIAL HISTORY The patient lives with his . There is no tobacco or alcohol use. FAMILY HISTORY Negative for malignancy. REVIEW OF SYSTEMS A complete review of systems is negative except as indicated in the HPI. PHYSICAL EXAMINATION VITAL SIGNS: Temperature 98.1, pulse 68, respirations 20, blood pressure 79/39 but with manual cuff 102/60, oxygen saturation 99% on 3 liters per trach mask. GENERAL: The patient is a chronically ill-appearing male who is awake and alert. HEENT: Head is atraumatic. Mucous membranes are moist. NECK: Patient has a tracheostomy. LUNGS: Relatively clear to auscultation bilaterally with no increased work of breathing. HEART: Regular rate and rhythm. ABDOMEN: Soft. He is tender to palpation throughout. Bowel sounds present. He does have an ileal conduit. EXTREMITIES: Nontender with no pedal edema. NEUROLOGIC: Patient is awake and alert. He follows commands. PSYCHIATRIC: Mood and affect are normal. Patient is cooperative. SKIN OF EXAMINED AREAS: Warm and dry. DIAGNOSTIC STUDIES Unit #: [id number] #: [id number] Patient: GAIL PAUL LABORATORY: Complete blood count notable for white blood cell count of 13.6, hemoglobin 9.9, hematocrit 30.8. Lactic acid 1.4. INR 1.1. Comprehensive metabolic panel notable for a sodium 129, BUN 25, creatinine 1.6, alkaline phosphatase 102, total protein 5.9, albumin 2.4. Urinalysis notable for 3+ leukocyte esterase, 4+ blood with 10-25 rbc's, 200-300 wbc's, 2+ bacteria, occasional squamous cells. Troponin is less than 0.05. IMAGING: CT of the abdomen and pelvis shows a left perinephric hematoma measuring 5 x 6 x 10 cm. There is also findings concerning for ileus versus small bowel obstruction. CARDIOVASCULAR: EKG shows normal sinus rhythm with a rate of 68 beats per minute. ASSESSMENT The patient is a 76-year-old male with: 1. Abdominal pain secondary to numbers 2 and 3. 2. Possible small bowel obstruction versus ileus. 3. Perinephric hematoma. The patient was on Eliquis for a few days during recent hospitalization. There is no history of trauma. 4. Chronic respiratory failure. The patient was unable to get home oxygen. 5. History of laryngeal carcinoma, status post laryngectomy with tracheostomy. 6. History of bladder cancer, status post cystectomy with ileal conduit. 7. History of non-small cell lung cancer. 8. Rectal cancer. 9. Chronic obstructive pulmonary disease. 10. Chronic anemia. The patient's hemoglobin was 8.2 yesterday, it is 9.9 today. 11. Hypothyroidism. 12. Atrial fibrillation maintained on amiodarone, not on anticoagulation. 13. Failure to thrive. 14. Leukocytosis. The patient's white blood cell count was 10.2 yesterday, it is 13.6 today. He was on Solu-Medrol in the hospital. His urinalysis does show some signs of infection although I suspect it is contaminated. I have not started antibiotics. 15. Hyponatremia. The patient's sodium was 129 yesterday, it is 129 today. 16. Acute kidney injury. The patient's creatinine was 1.2 yesterday, it is 1.6 today. He has had somewhat decreased p.o. intake. He is also on Lasix which could be contributing. PLAN 1. Admit to intermediate level. 2. Normal saline at 75 mL per hour. 3. P.r.n. Zofran. 4. Consult [facility] regarding small bowel obstruction and perinephric hematoma. The emergency room physician, Dr. Walsh, spoke with Dr. Downing who agreed to see him in consultation. 5. Hemoglobin and hematocrit q.6 h. 6. Monitor blood pressure closely. 7. Titrate oxygen. 8. Consult Dr. Doherty regarding chronic respiratory failure. 9. P.r.n. DuoNeb. 10. Serial cardiac enzymes. 11. Urine culture and sensitivity on urine in the lab. Unit #: [id number] #: [id number] Patient: GAIL PAUL 12. Check blood cultures. 13. Repeat labs in the morning. 14. SCDs. 15. Additional workup and consultants based on above. Dictated by Laxmi Cool M.D. BRYAN/christian TD: 11/15/2016 20:06 JOB #: [id number] HISTORY AND PHYSICAL Page 1 of 1 X Laxmi Cool MD X HISTORY AND PHYSICAL
--- NOTE | ~2016-11-15 | CO ---
Unit #: [id number] #: [id number] Patient: GAIL PAUL [id number] [address] [place], [place] [address] [id number] I MR#: [id number] NAME: GAIL PAUL ROOM: 466 Age: 76 Sex: M Admission Date: 11/15/2016 : 1940 Attending Physician: Brendan Nieves M.D. Primary Care Physician: Renetta Jones A.P.R.N. Consultation Date: 11/17/2016 CONSULTATION REPORT REASON FOR CONSULTATION Renal insufficiency. Thank you very much for asking us to see this patient in consultation. HISTORY OF PRESENT ILLNESS Mr. Gail Paul is a 76-year-old gentleman who has multiple medical problems as well outlined below, who was in the hospital from 11/07/2016 to 11/14/2016, where he presented with shortness of breath, found to have atrial fib with rapid ventricular response, was started on Eliquis, but his anticoagulation was discontinued due to gross hematuria. He also had questionable heart failure versus pneumonia at that time as well, as well as potential exacerbation of COPD, was discharged home. He presented back on 11/15/2016 with abdominal pain, questionable shortness of breath. He was found by CT scan to have a perinephric hematoma 10 cm on the left as well as small bowel obstruction. He was noted creatinine ranged between 1.1 to 1.3 over the last year or so and was 1.6 upon admission, where it was 1.2 on his discharge on 11/14/2016 and it is up to 2.0 this morning. Because of this, I was asked to see the patient. The patient currently is alert. He is thirsty. He denies any chest pain. He has no significant shortness of breath. Currently, he states his abdomen is still sore. PAST MEDICAL HISTORY He has a history of bladder CA, status post cystectomy and recent ileal conduit in early 10/[facility]. He is status post TURP; history of colon resection for rectal CA; history of lung CA non-small cell stage III, treated with chemo; history of throat cancer, status post laryngectomy; history of COPD; history of hypothyroidism; history of gastroesophageal reflux disease; history of atrial fibrillation, diagnosed a week ago. ALLERGIES No known drug allergies. SOCIAL HISTORY He is . Previous smoker, none now. No alcohol. CURRENT MEDICATIONS Include IV fluids, morphine, and Zofran. He was discharged home on 11/14/2016 with amiodarone 200 mg a day, several inhalers, Lopressor 12.5 mg b.i.d., Lasix 20 mg a day, iron pill daily, [place] p.r.n., omeprazole daily 20 mg, and Synthroid 175 mcg a day. REVIEW OF SYSTEMS Unit #: [id number] #: [id number] Patient: GAIL PAUL As mentioned in the HPI. He denies any severe headaches, dizziness, visual problems, sinus problems. Occasional cough. No hemoptysis. No neck pain or neck stiffness. No chest pain, chest heaviness, or palpitations. He denies any significant shortness of breath. This morning, he still has abdominal discomfort. He makes no urine. He has ileal conduit. He denies any lower extremity swelling. No recent seizures, strokes, or skin rashes. FAMILY HISTORY Noncontributory. PHYSICAL EXAMINATION VITAL SIGNS: Temperature is 98.8, pulse 69 to 84, blood pressure 94 to 138 over 51 to 71. He had 1840 in and 400 plus out. HEENT: Normocephalic and atraumatic. Pupils are equal, round, and reactive to light. Extraocular muscles are intact. Hearing appears to be normal. Mouth is clear. No erythema. No exudate. NECK: He has a laryngectomy hole. No JVD. CARDIAC: He appears to have a regular rate and rhythm with about 1/6 to 2/6 systolic ejection murmur. LUNGS: Sound fairly clear today anterior and posterior. No wheezes, rhonchi, or rales. ABDOMEN: Distended. Bowel sounds are positive, but faint. Mild diffuse tenderness. He has ileal conduit in the right lower quadrant. : No scrotal or penile edema. EXTREMITIES: He has no lower extremity swelling. His pulses are intact in upper and lower extremities. JOINTS: No joint pain or joint swelling. SKIN: No acute rashes. NEUROLOGIC: Appears to be intact motor and sensory grossly. DIAGNOSTIC STUDIES LABORATORY RESULTS: This morning shows sodium of 135, potassium 4.6, chloride is 102, bicarb is 21, BUN of 30, creatinine 2.0 with a glucose of 72, calcium is 8.4, phosphorus 5, magnesium is 2. Creatinine yesterday was 1.7, 1.6 day before. Again creatinine over the last year has been around 1.1 to 1.3. His CPK was only 7, troponin 0.03, TSH is 6.63. White count 17,400, hemoglobin is 8.4 with a platelet of 193,000. He had blood cultures done yesterday that are pending. He did have a urine culture done, although I am not sure how to interpret with his ileal conduit. ASSESSMENT/PLAN 1. Acute on probably mild chronic kidney disease, late stage 2, early stage 3. He was noted to have a renal ultrasound on 11/13/2016, which showed some mild bilateral hydronephrosis, although that was prior to the hematoma. Apparently, the large hematoma on the left perinephric area was on 11/15/2016. What I do think he is probably going on and he probably has some intravascular volume depletion from his hematoma as well as with his small bowel obstruction, decreased p.o. intake, as well as he has had some intermittent low blood pressure less than 100, and potentially some acute tubular necrosis on top of that. I am going to increase his IV fluids and normal saline to 125 mL an hour. I am going to go ahead and repeat a renal ultrasound to make sure his hydronephrosis is not significantly worse. We would recommend avoiding all nephrotoxins if possible including PPIs, vancomycin, gentamicin, nonsteroidals, etc. 2. Left perinephric hematoma. 3. Small bowel obstruction. 4. History of atrial fibrillation, now in normal sinus rhythm. Unit #: [id number] #: [id number] Patient: GAIL PAUL 5. Status post cystectomy with ileal conduit in early 10/2016, history of multiple other cancers, history of chronic obstructive pulmonary disease. Dictated by... Ashok Eastman M.D. SIMÓN/daniel TD: 11/19/2016 05:01 JOB #: [id number] CONSULTATION REPORT Page 1 of 1 X Marika Eastman MD X CONSULTATION REPORT
[~2016-11-15 17:06] MED LIST changes: +AMIODARONE PO; +COMBIVENT U/D3 M3 INH; +HYDROCODON-ACE1 EAC7 PO; +IRON1 TAB PO; +LASIX20 MG PO; +LEVOTHYROXINE150 MCG PO; +LOPRESSOR PO; +LOVENOX30 MG/0.3 INJ; +OMEPRAZOLE20 M1 PO; +SYNTHROID175 MCG PO; +VITAMIN C500 M2 PO
[2016-11-15 17:46] LABS: BASOPHIL# 0.1 X10e3 (0-0.3); BASOPHIL% 0.7 % (0-2.5); EOSINOPHIL# 0.1 X10e3 (0-0.7); EOSINOPHIL% 0.4 % (0.0-7.0); HEMATOCRIT 30.8 % (38.0-50.0); HEMOGLOBIN 9.9 gm/dL (13.0-16.0); LYMPHOCYTE% 7.2 % (17.0-45.0); MEAN CELL VOLUME 83.5 FL (83-96); MEAN CORPUSCULAR HEMOGLOBIN 26.7 PG (28-34); MEAN PLATELET VOLUME 9.2 FL (6.5-11.5); MONOCYTE# 1.1 X10e3 (0-1.0); NEUTROPHIL# 11.4 X10e3 (1.5-7.1); NEUTROPHIL% 83.7 % (40-75); PLATELET COUNT 201 X10e3 (140-420); RED BLOOD COUNT 3.69 X10e (3.90-5.60); RED CELL DISTRIBUTION WIDTH 18.1 % (11.0-15.5); WHITE BLOOD COUNT 13.6 X10e3 (4.0-10.5)
[2016-11-15 17:49] LABS: DIFF IND NO
[2016-11-15 18:00] LABS: URINE SOURCE CLEAN CATCH
[2016-11-15 18:04] LABS: INR 1.1; PARTIAL THROMBOPLASTIN TIME 32.3 SECONDS (23.5-31.3); PROTHROMBIN TIME (PATIENT) 11.4 SECONDS (9.6-11.5)
[2016-11-15 18:06] LABS: ALBUMIN SERUM 2.4 g/dL (3.5-5.0); BILIRUBIN, DIRECT 0.2 mg/dL (0.0-0.2); BILIRUBIN,INDIRECT 0.4 mg/dL (0.0-0.9); BILIRUBIN,TOTAL 0.6 mg/dL (0.2-2.0); BUN/CREATININE RATIO 15.62; CALCIUM SERUM 8.5 mg/dL (8.4-10.2); CREATININE SERUM 1.6 mg/dL (0.6-1.4); GLOM FILT RATE Estimated 41.3 mL/min (>60); POTASSIUM 4.4 mmol/L (3.5-5.1); PROTEIN TOTAL SERUM 5.9 g/dL (6.0-8.3)
[2016-11-15 18:18] LABS: URINE APPEARANCE CLOUDY; URINE BILIRUBIN NEG (NEG); URINE BLOOD 4+ (NEG); URINE COLOR YELLOW; URINE GLUCOSE NORM (NORM); URINE KETONE NEG (NEG); URINE LEUKOCYTE ESTERASE 3+ (NEG); URINE NITRATE NEG (NEG); URINE PROTEIN 1+ (NEG); URINE UROBILINOGEN NORM (NORM)
[2016-11-15 18:26] LABS: CULTURE INDICATED? YES; UWBCS1 AUWI 200-300 (0-5)
[2016-11-15 18:27] LABS: URINE BACTERIA AUWI 2+ (NEGATIVE); URINE SQUAMOUS EPITHELIAL CELL OCCAS /[HPF]
[2016-11-15 18:41] LABS: POC - CKMB <1.0 ng/mL (0.0-7.9); POC - TROPONIN <0.05 ng/mL (<=0.05)
[2016-11-16 01:50] LABS: BASOPHIL# 0.1 X10e3 (0-0.3); BASOPHIL% 0.9 % (0-2.5); EOSINOPHIL# 0.1 X10e3 (0-0.7); EOSINOPHIL% 0.9 % (0.0-7.0); HEMATOCRIT 28.7 % (38.0-50.0); HEMOGLOBIN 9.3 gm/dL (13.0-16.0); LYMPHOCYTE# 0.9 X10e3 (1.0-3.5); LYMPHOCYTE% 7.7 % (17.0-45.0); MEAN CELL VOLUME 83.7 FL (83-96); MEAN CORPUSCULAR HEMOGLOBIN 27.1 PG (28-34); MEAN CORPUSCULAR HGB CONC 32.3 g/dL (30-36); MEAN PLATELET VOLUME 8.9 FL (6.5-11.5); MONOCYTE% 8.2 % (3.0-12.0); NEUTROPHIL# 9.7 X10e3 (1.5-7.1); NEUTROPHIL% 82.3 % (40-75); PLATELET COUNT 210 X10e3 (140-420); RED BLOOD COUNT 3.43 X10e (3.90-5.60); RED CELL DISTRIBUTION WIDTH 18.4 % (11.0-15.5); WHITE BLOOD COUNT 11.8 X10e3 (4.0-10.5)
[2016-11-16 01:56] LABS: DIFF IND NO
[2016-11-16 02:04] LABS: INR 1.1; PROTHROMBIN TIME (PATIENT) 11.5 SECONDS (9.6-11.5)
[2016-11-16 02:09] LABS: CK TOTAL 8 IU/L (36-174)
[2016-11-16 02:11] LABS: ALBUMIN SERUM 2.3 g/dL (3.5-5.0); BILIRUBIN,TOTAL 0.9 mg/dL (0.2-2.0); BUN/CREATININE RATIO 15.88; CALCIUM SERUM 8.2 mg/dL (8.4-10.2); CREATININE SERUM 1.7 mg/dL (0.6-1.4); GLOM FILT RATE Estimated 38.3 mL/min (>60); POTASSIUM 4.2 mmol/L (3.5-5.1); PROTEIN TOTAL SERUM 5.6 g/dL (6.0-8.3)
[2016-11-16 05:22] LABS: HEMATOCRIT 26.3 % (38.0-50.0); HEMOGLOBIN 8.6 gm/dL (13.0-16.0); MEAN CELL VOLUME 82.9 FL (83-96); MEAN CORPUSCULAR HEMOGLOBIN 27.1 PG (28-34); MEAN CORPUSCULAR HGB CONC 32.7 g/dL (30-36); MEAN PLATELET VOLUME 8.5 FL (6.5-11.5); RED BLOOD COUNT 3.18 X10e (3.90-5.60); RED CELL DISTRIBUTION WIDTH 18.5 % (11.0-15.5); WHITE BLOOD COUNT 12.8 X10e3 (4.0-10.5)
[2016-11-16 05:51] LABS: CK TOTAL 7 IU/L (36-174)
[2016-11-16 12:08] LABS: HEMATOCRIT 26.7 % (38.0-50.0); HEMOGLOBIN 8.7 gm/dL (13.0-16.0); MEAN CELL VOLUME 83.4 FL (83-96); MEAN CORPUSCULAR HEMOGLOBIN 27.1 PG (28-34); MEAN CORPUSCULAR HGB CONC 32.5 g/dL (30-36); MEAN PLATELET VOLUME 8.6 FL (6.5-11.5); RED BLOOD COUNT 3.2 X10e (3.90-5.60); RED CELL DISTRIBUTION WIDTH 18.7 % (11.0-15.5); WHITE BLOOD COUNT 17.8 X10e3 (4.0-10.5)
[2016-11-17 04:27] LABS: BASOPHIL# 0.2 X10e3 (0-0.3); BASOPHIL% 0.9 % (0-2.5); EOSINOPHIL# 0.1 X10e3 (0-0.7); EOSINOPHIL% 0.6 % (0.0-7.0); HEMATOCRIT 26.1 % (38.0-50.0); HEMOGLOBIN 8.4 gm/dL (13.0-16.0); LYMPHOCYTE# 0.8 X10e3 (1.0-3.5); LYMPHOCYTE% 4.7 % (17.0-45.0); MEAN CELL VOLUME 84.1 FL (83-96); MEAN CORPUSCULAR HEMOGLOBIN 26.9 PG (28-34); MEAN PLATELET VOLUME 8.7 FL (6.5-11.5); MONOCYTE# 1.2 X10e3 (0-1.0); MONOCYTE% 6.6 % (3.0-12.0); NEUTROPHIL# 15.2 X10e3 (1.5-7.1); NEUTROPHIL% 87.2 % (40-75); PLATELET COUNT 193 X10e3 (140-420); RED BLOOD COUNT 3.11 X10e (3.90-5.60); RED CELL DISTRIBUTION WIDTH 18.3 % (11.0-15.5); WHITE BLOOD COUNT 17.4 X10e3 (4.0-10.5)
[2016-11-17 04:29] LABS: DIFF IND YES
[2016-11-17 04:38] LABS: CALCIUM SERUM 8.4 mg/dL (8.4-10.2); GLOM FILT RATE Estimated 31.5 mL/min (>60); MAGNESIUM 2.1 mg/dL (1.6-3.0); POTASSIUM 4.6 mmol/L (3.5-5.1)
[2016-11-17 04:56] LABS: PLATELET ESTIMATE NORMAL (NORMAL)
[2016-11-17 04:57] LABS: ANISOCYTOSIS SL; POIKILOCYTOSIS SL; POLYCHROMASIA SL
[2016-11-18 03:44] LABS: ALBUMIN SERUM 2.2 g/dL (3.5-5.0); BILIRUBIN,TOTAL 1.1 mg/dL (0.2-2.0); CALCIUM SERUM 8.3 mg/dL (8.4-10.2); CREATININE SERUM 1.5 mg/dL (0.6-1.4); GLOM FILT RATE Estimated 44.6 mL/min (>60); HEMATOCRIT 26.4 % (38.0-50.0); HEMOGLOBIN 8.6 gm/dL (13.0-16.0); MAGNESIUM 1.9 mg/dL (1.6-3.0); MEAN CELL VOLUME 84.2 FL (83-96); MEAN CORPUSCULAR HEMOGLOBIN 27.6 PG (28-34); MEAN CORPUSCULAR HGB CONC 32.8 g/dL (30-36); MEAN PLATELET VOLUME 8.8 FL (6.5-11.5); PHOSPHOROUS 3.8 mg/dL (2.5-4.6); POTASSIUM 4.5 mmol/L (3.5-5.1); PROTEIN TOTAL SERUM 5.5 g/dL (6.0-8.3); RED BLOOD COUNT 3.14 X10e (3.90-5.60); RED CELL DISTRIBUTION WIDTH 18.2 % (11.0-15.5); WHITE BLOOD COUNT 16.2 X10e3 (4.0-10.5)
[2016-11-19 04:09] LABS: BASOPHIL# 0.1 X10e3 (0-0.3); BASOPHIL% 0.8 % (0-2.5); EOSINOPHIL# 0.1 X10e3 (0-0.7); EOSINOPHIL% 0.9 % (0.0-7.0); HEMATOCRIT 26.3 % (38.0-50.0); HEMOGLOBIN 8.4 gm/dL (13.0-16.0); LYMPHOCYTE# 0.9 X10e3 (1.0-3.5); LYMPHOCYTE% 6.9 % (17.0-45.0); MEAN CELL VOLUME 84.2 FL (83-96); MEAN CORPUSCULAR HEMOGLOBIN 26.9 PG (28-34); MEAN CORPUSCULAR HGB CONC 31.9 g/dL (30-36); MEAN PLATELET VOLUME 8.9 FL (6.5-11.5); MONOCYTE% 7.5 % (3.0-12.0); NEUTROPHIL# 11.5 X10e3 (1.5-7.1); NEUTROPHIL% 83.9 % (40-75); PLATELET COUNT 224 X10e3 (140-420); RED BLOOD COUNT 3.13 X10e (3.90-5.60); WHITE BLOOD COUNT 13.7 X10e3 (4.0-10.5)
[2016-11-19 04:11] LABS: DIFF IND NO
[2016-11-19 04:39] LABS: CALCIUM SERUM 8.6 mg/dL (8.4-10.2); CREATININE SERUM 1.5 mg/dL (0.6-1.4); GLOM FILT RATE Estimated 44.6 mL/min (>60); MAGNESIUM 1.9 mg/dL (1.6-3.0); PHOSPHOROUS 3.2 mg/dL (2.5-4.6); POTASSIUM 3.7 mmol/L (3.5-5.1)
[2016-11-20 04:02] LABS: BASOPHIL# 0.1 X10e3 (0-0.3); BASOPHIL% 1.2 % (0-2.5); EOSINOPHIL# 0.2 X10e3 (0-0.7); EOSINOPHIL% 1.8 % (0.0-7.0); HEMATOCRIT 24.9 % (38.0-50.0); MEAN CELL VOLUME 84.7 FL (83-96); MEAN CORPUSCULAR HEMOGLOBIN 27.3 PG (28-34); MEAN CORPUSCULAR HGB CONC 32.2 g/dL (30-36); MEAN PLATELET VOLUME 8.8 FL (6.5-11.5); MONOCYTE# 0.9 X10e3 (0-1.0); MONOCYTE% 7.6 % (3.0-12.0); NEUTROPHIL# 9.7 X10e3 (1.5-7.1); NEUTROPHIL% 81.4 % (40-75); PLATELET COUNT 209 X10e3 (140-420); RED BLOOD COUNT 2.94 X10e (3.90-5.60); RED CELL DISTRIBUTION WIDTH 18.7 % (11.0-15.5)
[2016-11-20 04:03] LABS: DIFF IND NO
[2016-11-20 04:17] LABS: ALBUMIN SERUM 2.1 g/dL (3.5-5.0); BILIRUBIN,TOTAL 0.3 mg/dL (0.2-2.0); BUN/CREATININE RATIO 11.87; CALCIUM SERUM 8.2 mg/dL (8.4-10.2); CREATININE SERUM 1.6 mg/dL (0.6-1.4); GLOM FILT RATE Estimated 41.3 mL/min (>60); MAGNESIUM 2.2 mg/dL (1.6-3.0); POTASSIUM 3.8 mmol/L (3.5-5.1); PROTEIN TOTAL SERUM 5.2 g/dL (6.0-8.3)
== END 2016-11-20 16:26 | disposition short-term general hospital (02) | DRG 698 ==
LOC: CED 17:06 → CEDOF 19:10 → C4B 22:55 → C4C 11-16 18:50
PROVIDERS: Emergency Medicine; Family Medicine; Internal Medicine Nephrology; Specialist; Surgery
PROC: B548ZZA Ultrasonography of Superior Vena Cava, Guidance (ICD-10-PCS; 2016-11-15)
PROC: 02HV33Z Insertion of Infusion Device into Superior Vena Cava, Percutaneous Approach (ICD-10-PCS; principal; 2016-11-19)
PROC: B518YZA Fluoroscopy of Superior Vena Cava using Other Contrast, Guidance (ICD-10-PCS; 2016-11-19)
DX: N28.89 Other specified disorders of kidney and ureter (principal); E43 Unspecified severe protein-calorie malnutrition; J96.20 Acute and chronic respiratory failure, unspecified whether with hypoxia or hypercapnia; K56.60 Unspecified intestinal obstruction; J96.10 Chronic respiratory failure, unspecified whether with hypoxia or hypercapnia; E87.2 Acidosis; I48.91 Unspecified atrial fibrillation; J44.9 Chronic obstructive pulmonary disease, unspecified; B37.49 Other urogenital candidiasis; N17.9 Acute kidney failure, unspecified; Z85.118 Personal history of other malignant neoplasm of bronchus and lung; Z85.51 Personal history of malignant neoplasm of bladder; Z87.891 Personal history of nicotine dependence; E03.9 Hypothyroidism, unspecified; N18.3 Chronic kidney disease, stage 3 (moderate)
CPT/HCPCS: 36415; 71010; 74020; 74176; 74250; 76770; 76937; 77001; 80048; 80053; 80076; 81003; 82550; 82553; 83605; 83735; 84100; 84443; 84484; 85025; 85027; 85610; 85730; 86850; 86900; 86901; 86923; 87040; 87086; 93005; 93970; 94640; 94760; 94761; 99285; C1751; C9113; J0282; J1450; J2270; J2405; J2550; J2710; J3475; J3480; J3490